=== PATIENT | female | born 1985 | race African-American/Black ===

== ENCOUNTER 2019-07-01 13:03 | Emergency (ER) | payer SELFPAY ==
--- NOTE | 2019-07-01 13:36 | ER ---
Nurse's Notes [facility] Name: Mercedes Cuello Age: 33 yrs Sex: Female : 1985 Arrival Date: 07/01/2019 Time: 13:05 Bed 13 Private MD: Diagnosis: Low back pain Presentation: 07/01 13:08 Presenting complaint: Patient states: lower back pain radiating to right leg. Pt states aa5 "I have back pain and I was doing some lifting over the weekend and aggravated it". 13:08 Transition of care: patient was not received from another setting of care. Onset of aa5 symptoms was June 2019. Risk Assessment: Do you want to hurt yourself or someone else? Patient reports no desire to harm self or others. Initial Sepsis Screen: Does the patient meet any 2 criteria? No. Patient's initial sepsis screen is negative. Does the patient have a suspected source of infection? No. Patient's initial sepsis screen is negative. Care prior to arrival: None. 13:08 Acuity: ALEXYS 4 aa5 13:08 Method Of Arrival: Ambulatory aa5 Triage Assessment: 13:10 General: Appears in no apparent distress. comfortable, obese, Behavior is cooperative, bp appropriate for age, anxious. Pain: Complains of pain in lumbar area. EENT: No deficits noted. Neuro: No deficits noted. Cardiovascular: No deficits noted. Respiratory: No deficits noted. GI: No signs and/or symptoms were reported involving the gastrointestinal system. : No signs and/or symptoms were reported regarding the genitourinary system. Derm: No deficits noted. Musculoskeletal: No deficits noted. 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 - Social history:: Smoking status: Patient uses tobacco products, denies chronic smoking, but will smoke occasionally. - Ebola Screening: : No symptoms or risks identified at this time. Screenin:11 Abuse screen: Denies threats or abuse. Denies injuries from another. Nutritional bp screening: No deficits noted. Tuberculosis screening: No symptoms or risk factors identified. Fall Risk None identified. Assessment: 13:10 General: SEE TRIAGE NOTE. bp 14:10 Reassessment: PT D/C HOME AMBULATORY, DX WITH LUMBAR PAIN. bp Vital Signs: 13:09 BP 152 / 90; Pulse 85; Resp 18 S; Temp 98.8(TE); Pulse Ox 100% on R/A; Weight 136.08 kg aa5 (R); Height 5 ft. 7 in. (170.18 cm) (R); Pain 8/10; 13:09 Body Mass Index 46.99 (136.08 kg, 170.18 cm) aa5 ED Course: 13:05 Patient arrived in ED. aa5 13:09 Arm band placed on. aa5 13:11 Triage completed. aa5 13:13 [facility]C [facility]. kb 13:13 Yinka Jacob MD is Attending Physician. kb 13:38 David Wu, RN is Primary Nurse. bp 14:11 Patient has correct armband on for positive identification. Bed in low position. Call bp light in reach. Side rails up X2. 14:11 No provider procedures requiring assistance completed. Patient did not have IV access bp during this emergency room visit. Administered Medications: 13:50 Drug: TORadol - Ketorolac 15 mg Route: IM; Site: right gluteus; bp 14:12 Follow up: Response: Pain is decreased bp Outcome: 13:36 Discharge ordered by MD. kb 14:11 Discharged to home ambulatory. bp 14:11 Condition: stable 14:11 Discharge instructions given to patient, Instructed on discharge instructions, follow up and referral plans. medication usage, Demonstrated understanding of instructions, follow-up care, medications, Prescriptions given X 2. 14:12 Patient left the ED. bp Signatures: Renetta Reyes FNP-C FNP-Ckb Calderon, Audri RN RN aa5 David Wu, EUSEBIA RN bp
--- NOTE | 2019-07-01 13:37 | EDPHYS ---
Physician Documentation [facility] Name: Mercedes Cuello Age: 33 yrs Sex: Female : 1985 Arrival Date: 07/01/2019 Time: 13:05 Bed 13 Private MD: ED Physician Yinka Jacob HPI: 07/01 13:32 This 33 yrs old Black Female presents to ER via Ambulatory with complaints of Back Pain.kb 13:32 The patient presents with pain that is chronic, with no known mechanism of injury. The kb symptoms are located in the low back. Onset: The symptoms/episode began/occurred 14 year(s) ago, and became worse 1 week(s) ago. The pain does not radiate. Associated signs and symptoms: The patient has no apparent associated signs or symptoms. The problem was sustained when bending over, from a chronic condition, the patient has known disc disease. Modifying factors: The patient symptoms are alleviated by nothing, the patient symptoms are aggravated by any movement. Severity of symptoms: At their worst the symptoms were moderate, in the emergency department the symptoms are unchanged. The patient has not experienced similar symptoms in the past. The patient has not recently seen a physician. 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 - Social history:: Smoking status: Patient uses tobacco products, denies chronic smoking, but will smoke occasionally. - Ebola Screening: : No symptoms or risks identified at this time. ROS: 13:30 Constitutional: Negative for fever, chills, and weight loss, Neck: Negative for injury, kb pain, and swelling, Cardiovascular: Negative for chest pain, palpitations, and edema, Respiratory: Negative for shortness of breath, cough, wheezing, and pleuritic chest pain, Abdomen/GI: Negative for abdominal pain, nausea, vomiting, diarrhea, and constipation, MS/Extremity: Negative for injury and deformity, Skin: Negative for injury, rash, and discoloration, Neuro: Negative for headache, weakness, numbness, tingling, and seizure. 13:30 Back: Positive for pain at rest, pain with movement, of the lumbar area. Exam: 13:31 Constitutional: This is a well developed, well nourished patient who is awake, alert, kb and in no acute distress. Head/Face: Normocephalic, atraumatic. Neck: Trachea midline, no thyromegaly or masses palpated, and no cervical lymphadenopathy. Supple, full range of motion without nuchal rigidity, or vertebral point tenderness. No Meningismus. Chest/axilla: Normal chest wall appearance and motion. Nontender with no deformity. No lesions are appreciated. Cardiovascular: Regular rate and rhythm with a normal S1 and S2. No gallops, murmurs, or rubs. Normal PMI, no JVD. No pulse deficits. Respiratory: Lungs have equal breath sounds bilaterally, clear to auscultation and percussion. No rales, rhonchi or wheezes noted. No increased work of breathing, no retractions or nasal flaring. Abdomen/GI: Soft, non-tender, with normal bowel sounds. No distension or tympany. No guarding or rebound. No evidence of tenderness throughout. Skin: Warm, dry with normal turgor. Normal color with no rashes, no lesions, and no evidence of cellulitis. MS/ Extremity: Pulses equal, no cyanosis. Neurovascular intact. Full, normal range of motion. Neuro: Awake and alert, GCS 15, oriented to person, place, time, and situation. Cranial nerves II-XII grossly intact. Motor strength 5/5 in all extremities. Sensory grossly intact. Cerebellar exam normal. Normal gait. 13:31 Back: pain, that is moderate, ROM is painful, normal spinal alignment noted. Vital Signs: 13:09 BP 152 / 90; Pulse 85; Resp 18 S; Temp 98.8(TE); Pulse Ox 100% on R/A; Weight 136.08 kg aa5 (R); Height 5 ft. 7 in. (170.18 cm) (R); Pain 8/10; 13:09 Body Mass Index 46.99 (136.08 kg, 170.18 cm) aa5 MDM: 13:13 Patient medically screened. kb 13:30 Data reviewed: vital signs, nurses notes. Data interpreted: Pulse oximetry: on room air kb is 100 %. Interpretation: normal. Counseling: I had a detailed discussion with the patient and/or guardian regarding: the historical points, exam findings, and any diagnostic results supporting the discharge/admit diagnosis, the need for outpatient follow up, a family practitioner, to return to the emergency department if symptoms worsen or persist or if there are any questions or concerns that arise at home. Administered Medications: 13:50 Drug: TORadol - Ketorolac 15 mg Route: IM; Site: right gluteus; bp 14:12 Follow up: Response: Pain is decreased bp Disposition: 15:39 Co-signature as Attending Physician, Yinka Jacob MD. rn Disposition: 07/01/19 13:36 Discharged to Home. Impression: Low back pain. - Condition is Stable. - Discharge Instructions: Back Injury Prevention, [id number], Back Pain, Adult, [id number], Back Exercises, [id number]. - Prescriptions for Cyclobenzaprine 10 mg Oral Tablet - take 1 tablet by ORAL route every 8 hours As needed; 21 tablet. Diclofenac Sodium 75 mg Oral Tablet, Delayed Release (E.C.) - take 1 tablet by ORAL route 2 times per day As needed; 30 tablet. - Medication Reconciliation Form, Thank You Letter, Antibiotic Education, Prescription Opioid Use form. - Follow up: Emergency Department; When: As needed; Reason: Worsening of condition. Follow up: Private Physician; When: 2 - 3 days; Reason: Recheck today's complaints, Continuance of care, Re-evaluation by your physician. Signatures: Renetta Reyes, FINANCIAL SERVICES REPRESENTATIVE-C FINANCIAL SERVICES REPRESENTATIVE-Ckb Yinka Jacob MD MD rn Calderon, Audri RN RN aa5 David Wu RN RN bp Corrections: (The following items were deleted from the chart) 14:12 13:36 07/01/2019 13:36 Discharged to Home. Impression: Low back pain. Condition is bp Stable. Forms are Medication Reconciliation Form, Thank You Letter, Antibiotic Education, Prescription Opioid Use. Follow up: Emergency Department; When: As needed; Reason: Worsening of condition. Follow up: Private Physician; When: 2 - 3 days; Reason: Recheck today's complaints, Continuance of care, Re-evaluation by your physician. kb
[2019-07-01] MEDS ORDERED: KETOROLAC 30 MG/ML INJ ONE (13:44)
[2019-07-01 14:31] VITALS: BP 152/90; TEMP 98.8; O2SAT 100
== END 2019-07-01 14:12 | disposition home or self-care (01) ==
LOC: ER 13:03
DX: M54.5 Low back pain (principal); Z72.0 Tobacco use; Z88.8 Allergy status to other drugs, medicaments and biological substances
CPT/HCPCS: 96372; 99283

== ENCOUNTER 2022-05-09 18:07 | Emergency (ER) | payer BC ==
--- OUTSIDE RECORDS SUMMARY | 2022-05-09 18:12 | XMS REPORT | Continuity of Care Document ---
:1985 Author Organization [facility] t Address [address] [place] [place] [address] Care Team Providers Name Role Phone Cindy BARRIOS, R Primary Care Physician AUGUSTIN Attending Clinician Unavailable Augustin RICE Attending Clinician Only, Db Test Attending Clinician Unavailable DANTE Attending Clinician Unavailable Monica LAWS, T Attending Clinician Unavailable Aurora BARRIOS Attending Clinician AURORA Attending Clinician Unavailable Naz STEPHENS Attending Clinician Unavailable Juliane RICE Attending Clinician Angelo BARRIOS J Attending Clinician Scot FELICIANO Attending Clinician Unavailable BING_Aimee Attending Clinician Unavailable JONNY SALEH Attending Clinician Unavailable Jonny Saleh DO Attending Clinician Michael SANDOVAL Attending Clinician Cindy BARRIOS, R Attending Clinician Yashira WHTIE Attending Clinician Unavailable Lab, Fam Pob I Attending Clinician Unavailable Asim BARRIOS Attending Clinician ASIM Attending Clinician Unavailable Visit, Nurse Attending Clinician Unavailable Vineet Curry Attending Clinician Vineet GUADARRAMA Attending Clinician Unavailable Doctor Unassigned, Name Attending Clinician Unavailable Pop Martinez Attending Clinician Unknown Attending Clinician Unavailable UNKNOWN Attending Clinician Unavailable BING_Aimee_J Admitting Clinician Unavailable Payers Payer Name Policy Type Policy Number Effective Date Expiration Date Gill badillo [employer] [id number] 2019 00:00:00 [place] [id number] 2019 00:00:00 Problems Condition Condition Condition Status Onset Resolution Last Treating Co mments Source Name Details Category Date Date Treatment Clinician Date Otalgia of Otalgia of Disease Active U nivers left ear left ear 5-06 ity of 00:00: [place] 00 [facility] Branch Non-recurr Non-recurr Disease Active U nivers ent acute ent acute 5 ity of serous serous 00:00: [place] otitis otitis 00 Medical media of media of Branch left ear left ear Otalgia of Otalgia of Disease Active U nivers left ear left ear 03-18 ity of 00:00: [place] 00 Medical Branch Trichomona Trichomona Disease Active 2018-11 U jhon l l 2-27 ity of vulvovagin vulvovagin [place] it[place] it[place] 00 [facility] BMI BMI Disease Active 2018-11 Univers 45.0-49.9, 45.0-49.9, 2-20 it y of adult adult 00:00: [place] [facility] Pain Pain Disease Active 2018-11 Univers pelvic pelvic 2-20 ity of 00:00: [place] [facility] Branch Well woman Well woman Disease Active 2015-11 U jhon exam exam 2-30 ity of 00:00: [place] [facility] Other Other Disease Active Overview: Univer s general general 5-12 Formattin ity o f counseling counseling 00:00: g of this [place] and advice and advice 00 note Me dical for for might be Branch contracept contracept different deysi deysi from the management management original. 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 Stopped effexor 10/2013 when she found out she was . Pelvic Pelvic Disease Resolve 2019-11-01 2019-11-01 Univers pain pain d 6-23 00:00:00 20:34:23 ity of 00:00: [place] 00 Medical Branch Multiparit Multiparit Disease Resolve 2013-112016-11-11 2016-11-11 Univers y y d 0-02 00:00:00 14:36:53 ity of 00:00: [place] 00 Medical Branch Displaceme Displaceme Disease Resolve 2016-11-11 2016-11-11 Univers nt of nt of d 1-14 00:00:00 14:36:47 ity of interverte interverte 00:00: [place] bral disc, bral disc, 00 Me dical site site Branch unspecifie unspecifie d, without d, without myelopathy myelopathy Rubella Rubella Disease Resolve 2015-03-24 2015-03-24 Univers nonimmune nonimmune d 7-10 00:00:00 14:12:29 ity of status, status, 00:00: [place] delivered, delivered, 00 Me dical current current Branch hospitaliz hospital ation ation Susceptibl Susceptibl Disease Resolve 2015-03-24 2015-03-24 Univers e to e to d 1-16 00:00:00 14:12:26 ity of varicella varicella 00:00: [place] (non-immun (non-immun 00 Me dical e), e), Branch currently currently Anemia of Anemia of Disease Resolve 2014-08-14 2014-08-15 Univers mother in mother in d 9-08 00:00:00 00:40:40 [place] of , , [place]: [place] 00 [place]ical condition condition Bran ch Disease Resolve 2014-08-14 2014-08-15 Univers delivery delivery d 8-14 00:00:00 00:40:43 it [place] delivered delivered [place] [facility] Obese Obese Disease Resolve 2014-08-14 2014-08-15 Univers d 1- 00:00:00 00:40:30 ity of 00:00: [place] 00 Medical Branch Intramural Intramural Disease Resolve 2014-08-14 2014-08-15 Univers leiomyoma leiomyoma d 11-26 00:00:00 00:40:48 [place]y of of uterus of uterus [place] Cleft lip Cleft lip Disease Resolve 2014-08-14 2014-08-15 Univers d 11-26 00:00:00 00:40:50 ity of 00:00: [place] 00 [facility] Branch Chronic Chronic Disease Resolve 2014-08-14 2014-08-15 Univers hypertensi hypertensi d 06-05 00:00:00 00:40:03 ity of on in on in 00:00: [place] 00 [facility] Tobacco Tobacco Disease Resolve 2014-07-21 2014-07-21 Univers use use d 7 00:00:00 18:29:28 ity of disorder disorder 00:00: [place] 00 [facility] Branch Labor and Labor and Disease Resolve 2014-07-03 2014-07-03 Univers delivery, delivery, d 8- 00:00:00 18:16:35 [place]y of indication indication 00:00: [place] for care for care 00 Medica l Branch Hypertensi Hypertensi Disease Resolve 2014-06-26 2014-06-26 Univers on on d 8-11 00:00:00 14:27:10 ity of complicati complicati 00:00: [place] ng ng 00 Medical Bran ch Need for Need for Disease Resolve 2014-06-26 2014-06-26 Univers prophylact prophylact d 11-26 00:00:00 14:27:13 ity of ic ic 00:00: [place] vaccinatio vaccinatio 00 Me dical n and n and Branch inoculatio inoculatio n against n against influenza influenza History of History of Disease Resolve 2012-2014-05-22 2015-08-14 Univers cervical cervical d 7-24 00:00:00 23:52:23 it y of dysplasia dysplasia [place] [facility] Allergies, Adverse Reactions, Alerts Allergy Allergy Status Severity Reaction(s) Onset Inactive Treating Comm ents Source Name Type Date Date Clinician Antihist Propensi Active Swelling 2011-11 Univ ers amines - ty to 0-05 ity of Alkylami adverse 00:00: [place] ne reaction 00 Medical s to Branch drug ANTIHIST Drug Active Swelling 2011-11 Univer s AMINES - Class 0-05 ity of ALKYLAMI 00:00: [place] 00 Medical Branch Social History Social Habit Start Date Stop Date Quantity Comments Source Exposure to Not sure [place] of SARS-CoV-2 [place] Medical (event) Branch History SDOH University o f Alcohol Frequency [place] M edical Branch History SDOH University o f Alcohol Std [place] Medical Drinks Branch History SDOH University o f Alcohol Binge [place] Medic al Branch Alcohol intake 2021-11-15 2021-11-15 0 /d University of 00:00:00 00:00:00 [facility] [place] [facility] Tobacco use and 2014-01-09 2014-01-09 Never used Universit y of exposure 00:00:00 00:00:00 [facility] [place] [facility] History of 2013-12-26 Cigarette Smoker Universi ty of tobacco use 00:00:00 [facility] [place] [facility] Alcohol Comment 2013-11-26 2013-11-26 socially only Univer sity of 00:00:00 00:00:00 prior to [facility] Branch Sex [birth year] Universit y of 00:00:00 00:00:00 [facility] [place] [facility] Smoking Status Start Date Stop Date Source Former smoker 2014-01-09 00:00:00 2014-01-09 00:00:00 Universi ty of [facility] [place] [facility] Medications Ordered Filled Start Stop Current Ordering Indication Dosage Frequency Signature Comments Components Source Medication Medication Date Date Medication? Clinician (SIG) Name Name benzonatate Yes [id number] 200mg Take 2 Univers 100 mg 1-03 capsules ity of capsule 00:00[place] mouth 2 [place] (two[place] Medical times Branch daily as needed for Cough. guaiFENesin 2022-0 Yes [id number] 400mg Take 1 Univers 400 mg 1-03 tablet by ity of tablet 00:00: mouth [place] 00 every 4 Medical (four) Branch hours as needed for Cough. amoxicillin Yes Otalgia of 1{tbl} Take 1 Univers -clavulanat 5-06 left ear tablet by ity of e 00:00: mouth 2 [place] (AUGMENTIN) 00 (two) Medical 875-125 mg times Branch per tablet daily. ibuprofen Yes Otalgia of 600mg Take 1 Univers 600 mg 5-06 left ear tablet by ity of tablet 00:00: mouth [place] 00 every 6 Medical (six) Branch hours as needed for Pain (scale 4-6) or Temp > 38.5 C. amoxicillin Yes [id number] 1{tbl} Take 1 Univers -clavulanat 5-06 35154 tablet by it y of e 00:00: mouth 2 [place] (AUGMENTIN) 00 (two) Medical 875-125 mg times Branch per tablet daily. ibuprofen Yes [id number] 600mg Take 1 Univers 600 mg 5-06 [id number] tablet by ity of tablet 00:00: mouth [place] 00 every 6 Medical (six) Branch hours as needed for Pain (scale 4-6) or Temp > 38.5 C. amoxicillin Yes [id number] 1{tbl} Take 1 Univers -clavulanat 5-06 [id number] tablet by it y of e 00:00: mouth 2 [place] (AUGMENTIN) 00 (two) Medical 875-125 mg times Branch per tablet daily. ibuprofen Yes [id number] 600mg Take 1 Univers 600 mg 5-06 [id number] tablet by ity of tablet 00:00: mouth [place] 00 every 6 Medical (six) Branch hours as needed for Pain (scale 4-6) or Temp > 38.5 C. amoxicillin 2020- Yes [id number] 1{tbl} Take 1 Univers -clavulanat 5-06 tablet by ity of e 00:00: mouth 2 [place] (AUGMENTIN) 00 (two) Medical 875-125 mg times Branch per tablet daily. ibuprofen 2020-0 Yes [id number] 600mg Take 1 Univers 600 mg 5-06 tablet by ity of tablet 00:00: mouth [place] 00 every 6 Medical (six) Branch hours as needed for Pain (scale 4-6) or Temp > 38.5 C. amoxicillin 2020-0 Yes [id number] 1{tbl} Take 1 Univers -clavulanat 5-06 tablet by ity of e 00:00: mouth 2 [place] (AUGMENTIN) 00 (two) Medical 875-125 mg times Branch per tablet daily. ibuprofen 2020-0 Yes [id number] 600mg Take 1 Univers 600 mg 5-06 tablet by ity of tablet 00:00: mouth [place] 00 every 6 Medical (six) Branch hours as needed for Pain (scale 4-6) or Temp > 38.5 C. amoxicillin 2020-0 Yes [id number] 1{tbl} Take 1 Univers -clavulanat 5-06 [id number] tablet by it y of e 00:00: mouth 2 [place] (AUGMENTIN) 00 (two) Medical 875-125 mg times Branch per tablet daily. ibuprofen 2020-0 Yes [id number] 600mg Take 1 Univers 600 mg 5-06 [id number] tablet by ity of tablet 00:00: mouth [place] every 6 Medical (six) Branch hours as needed for Pain (scale 4-6) or Temp > 38.5 C. amoxicillin 2020-0 Yes [id number] 1{tbl} Take 1 Univers -clavulanat 5-06 [id number] tablet by it y of e 00:00: mouth 2 [place] (AUGMENTIN) 00 (two) Medical 875-125 mg times Branch per tablet daily. ibuprofen 2020-0 Yes [id number] 600mg Take 1 Univers 600 mg 5-06 [id number] tablet by ity of tablet 00:00: mouth [place] every 6 Medical (six) Branch hours as needed for Pain (scale 4-6) or Temp > 38.5 C. acyclovir 2020-0 Yes Univers 400 mg 1-19 ity of tablet 00:00: Medical Branch acyclovir 2020-0 Yes Univers 400 mg 1-19 ity of tablet 00:00: Medical Branch acyclovir 2020-0 Yes Univers 400 mg 1-19 ity of tablet 00:00: Medical Branch acyclovir 2020-0 Yes Univers 400 mg 1-19 ity of tablet 00:00: Medical Branch acyclovir 2020-0 Yes Univers 400 mg 1-19 ity of tablet 00:00: [place] 00 Medical Branch acyclovir 2020-0 Yes Univers 400 mg 1-19 ity of tablet 00:00: [place] 00 Medical Branch acyclovir 2020-0 Yes Univers 400 mg 1-19 ity of tablet 00:00: [place] 00 Medical Branch acyclovir 2020-0 Yes Univers 400 mg 1-19 ity of tablet 00:00: [place] 00 Medical Branch acyclovir 2020-0 Yes Univers 400 mg 1-19 ity of tablet 00:00: [place] 00 [facility] Branch norgestimat 2020-0 Yes [id number] 1{tbl} Take 1 Univers e-ethinyl 9-01 tablet by ity o f estradioL 00:00: mouth [place] (ORTHO 00 daily. [place] [address],) 0.18/0.215/ 0.25 mg-35 mcg (28) tablet norgestimat 2020-0 Yes [id number] 1{tbl} Take 1 Univers e-ethinyl 9-01 tablet by ity o f estradioL 00:00: mouth [place] (ORTHO 00 daily. [place] [address],) 0.18/0.215/ 0.25 mg-35 mcg (28) tablet norgestimat 2020-0 Yes [id number] 1{tbl} Take 1 Univers e-ethinyl 9-01 tablet by ity o f estradioL 00:00: mouth [place] (ORTHO 00 daily. [place] [address],) 0.18/0.215/ 0.25 mg-35 mcg (28) tablet norgestimat 2020-0 Yes [id number] 1{tbl} Take 1 Univers e-ethinyl 9-01 tablet by ity o f estradioL 00:00: mouth [place] [facility] [address] 0.18/0.215/ 0.25 mg-35 mcg (28) tablet norgestimat 2020-0 Yes [id number] 1{tbl} Take 1 Univers e-ethinyl 9-01 tablet by ity o f estradioL 00:00: mouth [place] (ORTHO 00 daily. [place] [address],) 0.18/0.215/ 0.25 mg-35 mcg (28) tablet norgestimat 2020-0 2021- No [place] 1{tbl} Take 1 Univers e-ethinyl 9- 05-06 h bleeding tablet by ity of estradioL 00:00: 00:00 on mouth [place] (ORTHO 00 :00 Depo-Intermediate Card Tender daily. [facility]-CYCLEN, a Branch 28,) 0.18/0.215/ 0.25 mg-35 mcg (28) tablet norgestimat 2020- No [id number] 1{tbl} Take 1 Univers e-ethinyl 9- 05-06 tablet by ity of estradioL 00:00: 00:00 mouth [place] (ORTHO 00 :00 daily. [facility] TRI-CYCLEN, Branch 28,) 0.18/0.215/ 0.25 mg-35 mcg (28) tablet acyclovir No [id number] 400mg Take 1 Univers 400 mg 3-26 04-01 tablet by ity of tablet 00:00: 04:59 mouth 3 [place] 00 :00 (three) Medical times Branch daily for 5 days. benzonatate 2020-0 Yes [id number] 200mg Take 1 Univers 200 mg 3-11 capsule by ity of capsule 00:00: mouth 3 [place] 00 (three) Medical times Branch daily as needed for Cough. codeine-gua 2020-0 Yes [id number] 5mL Take 5 mL Univers ifenesin 3-11 by mouth ity of 10-100 mg/5 00:00: every 6 [place] as mL solution 00 (six) Medical hours as Branch needed for Cough. benzonatate 2020-0 Yes [id number] 200mg Take 1 Univers 200 mg 3-11 capsule by ity of capsule 00:00: mouth 3 [place] 00 (three) Medical times Branch daily as needed for Cough. codeine-gua 2020-0 Yes [id number] 5mL Take 5 mL Univers ifenesin 3-11 by mouth ity of 10-100 mg/5 00:00: every 6 [place] as mL solution 00 (six) Medical hours as Branch needed for Cough. benzonatate 2020-0 Yes [id number] 200mg Take 1 Univers 200 mg 3-11 capsule by ity of capsule 00:00: mouth 3 [place] 00 (three) Medical times Branch daily as needed for Cough. codeine-gua 2020-0 Yes [id number] 5mL Take 5 mL Univers ifenesin 3-11 by mouth ity of 10-100 mg/5 00:00: every 6 [place] mL solution 00 (six) Medical hours as Branch needed for Cough. benzonatate 2020-0 Yes [id number] 200mg Take 1 Univers 200 mg 3-11 capsule by ity of capsule 00:00: mouth 3 [place] 00 (three) Medical times Branch daily as needed for Cough. codeine-gua 2020-0 Yes [id number] 5mL Take 5 mL Univers ifenesin 3-11 by mouth ity of 10-100 mg/5 00:00: every 6 [place] mL solution 00 (six) Medical hours as Branch needed for Cough. benzonatate 2020-0 Yes [id number] 200mg Take 1 Univers 200 mg 3-11 capsule by ity of capsule 00:00: mouth 3 (three) Medical times Branch daily as needed for Cough. codeine-gua 2020-0 Yes [id number] 5mL Take 5 mL Univers ifenesin 3-11 by mouth ity of 10-100 mg/5 00:00: every 6 [place] mL solution 00 (six) Medical hours as Branch needed for Cough. benzonatate 2020-0 Yes [id number] 200mg Take 1 Univers 200 mg 3-11 capsule by ity of capsule 00:00: mouth (three) Medical times Branch daily as needed for Cough. codeine-gua 2020-0 Yes [id number] 5mL Take 5 mL Univers ifenesin 3-11 by mouth ity of 10-100 mg/5 00:00: every 6 [place] mL solution 00 (six) Medical hours as Branch needed for Cough. benzonatate 2020-0 Yes [id number] 200mg Take 1 Univers 200 mg 3-11 capsule by ity of capsule 00:00: mouth 3 (three) Medical times Branch daily as needed for Cough. codeine-gua 2020-0 Yes [id number] 5mL Take 5 mL Univers ifenesin 3-11 by mouth ity of 10-100 mg/5 00:00: every 6 [place] mL solution 00 (six) Medical hours as Branch needed for Cough. benzonatate 2020-0 Yes [id number] 200mg Take 1 Univers 200 mg 3-11 capsule by ity of capsule 00:00: mouth 3 00 (three) Medical times Branch daily as needed for Cough. codeine-gua 2020-0 Yes [id number] 5mL Take 5 mL Univers ifenesin 3-11 by mouth ity of 10-100 mg/5 00:00: every 6 [place] mL solution 00 (six) Medical hours as Branch needed for Cough. benzonatate 2020-0 Yes [id number] 200mg Take 1 Univers 200 mg 3-11 capsule by ity of capsule 00:00: mouth 3 [place] 00 (three) Medical times Branch daily as needed for Cough. codeine-gua 2020-0 Yes [id number] 5mL Take 5 mL Univers ifenesin 3-11 by mouth ity of 10-100 mg/5 00:00: every 6 [place] mL solution 00 (six) Medical hours as Branch needed for Cough. benzonatate 2020-0 Yes [id number] 200mg Take 1 Univers 200 mg 3-11 capsule by ity of capsule 00:00: mouth 3 [place] 00 (three) Medical times Branch daily as needed for Cough. codeine-gua 2020-0 Yes [id number] 5mL Take 5 mL Univers ifenesin 3-11 by mouth ity of 10-100 mg/5 00:00: every 6 [place] mL solution 00 (six) Medical hours as Branch needed for Cough. benzonatate 2019-0 2020- No Cough 200mg Take 1 U nivers 200 mg 3-11 05-06 capsule by ity of capsule 00:00: 00:00 mouth 3 [place] 00 :00 (three) Medical times Branch daily as needed for Cough. codeine-gua 2020-0 2020- No Cough 5mL Take 5 mL Univers ifenesin 3-11 05-06 by mouth ity of 10-100 mg/5 00:00: 00:00 every 6 [place] mL solution 00 :00 (six) Medical hours as Branch needed for Cough. benzonatate 2020-0 2020- No [id number] 200mg Take 1 Univers 200 mg 3-11 05-06 capsule by ity of capsule 00:00: 00:00 mouth 3 [place] 00 :00 (three) Medical times Branch daily as needed for Cough. codeine-gua 2020-0 2020- No [id number] 5mL Take 5 mL Univers ifenesin 3-11 05-06 by mouth ity of 10-100 mg/5 00:00: 00:00 every 6 [place] mL solution 00 :00 (six) Medical hours as Branch needed for Cough. medroxyPROG 2020-0 2020- No 150mg Univ ers ESTERone 11-19 12-07 ity of (DEPO-PROVE 00:00: 23:59 [place] RA) 00 :00 Medical injection Branch 150 mg medroxyPROG 2020-0 2020- No 150mg Univ ers ESTERone 11-19 1207 ity of (DEPO-PROVE 00:00: 23:59 [place] RA) 00 :00 Medical injection Branch 150 mg medroxyPROG 2020-0 2020- No 150mg 150 mg, U nivers ESTERone 11-19 Intramuscu ity of (DEPO-PROVE 00:00: 23:59 lar, [place] RA) 00 :00 [id number], Medical injection 4 doses, Branch 150 mg First dose on Mon11/18/19 at 1800, Last dose on Mon07/27/20 at 1800, Routine medroxyPROG 2020-0 2020- No 150mg Univ ers ESTERone 11-19- ity of (DEPO-PROVE 00:00: 23:59 [place] RA) 00 :00 Medical injection Branch 150 mg medroxyPROG 2020-0 2020- No 150mg 150 mg, U nivers ESTERone 11-19 Intramuscu ity of (DEPO-PROVE 00:00: 23:59 [place], [place] RA) 00 :00 [id number], Medical injection 4 doses, Branch 150 mg First dose on Mon11/18/19 at 1800, Last dose on Mon07/27/20 at 1800, Routine medroxyPROG 2020-0 2020- No 150mg Univ ers ESTERone 11-19 12- ity of (DEPO-PROVE 00:00: 23:59 [place] RA) 00 :00 Medical injection Branch 150 mg medroxyPROG 2020-0 2020- No 150mg Univ ers ESTERone 11-19 12-07 ity of (DEPO-PROVE 00:00: 23:59 [place] RA) 00 :00 Medical injection Branch 150 mg medroxyPROG 2020-0 2020- No 150mg Univ ers ESTERone 11-19- ity of (DEPO-PROVE 00:00: 23:59 [place] RA) 00 :00 Medical injection Branch 150 mg medroxyPROG 2020-0 2020- No 150mg Univ ers ESTERone 11-19 10-19 ity of (DEPO-PROVE 00:00: 23:59 [place] RA) 00 :00 Medical injection Branch 150 mg Immunizations Ordered Immunization Filled Immunization Date Status Commen ts Source Name Name SARS-COV-2 COVID-19 2021-02-24 Completed Unive rsity of PFIZER VACCINE 00:00:00 [facility] SARS-COV-2 COVID-19 2021-02-24 Completed Unive rsity of PFIZER VACCINE 00:00:00 [facility] SARS-COV-2 COVID-19 2021-02-24 Completed Unive rsity of PFIZER VACCINE 00:00:00 [facility] SARS-COV-2 COVID-19 2021-02-24 Completed Unive rsity of PFIZER VACCINE 00:00:00 [facility] SARS-COV-2 COVID-19 2021-02-24 Completed Unive rsity of PFIZER VACCINE 00:00:00 [facility] SARS-COV-2 COVID-19 2021-02-24 Completed Unive rsity of PFIZER VACCINE 00:00:00 [facility] SARS-COV-2 COVID-19 2021-02-24 Completed Unive rsity of PFIZER VACCINE 00:00:00 [facility] SARS-COV-2 COVID-19 2021-02-03 Completed Unive rsity of PFIZER VACCINE 00:00:00 [facility] SARS-COV-2 COVID-19 2021-02-03 Completed Unive rsity of PFIZER VACCINE 00:00:00 [facility] SARS-COV-2 COVID-19 2021-02-03 Completed Unive rsity of PFIZER VACCINE 00:00:00 [facility] SARS-COV-2 COVID-19 2021-02-03 Completed Unive rsity of PFIZER VACCINE 00:00:00 [facility] SARS-COV-2 COVID-19 2021-02-03 Completed Unive rsity of PFIZER VACCINE 00:00:00 [facility] SARS-COV-2 COVID-19 2021-02-03 Completed Unive rsity of PFIZER VACCINE 00:00:00 [facility] SARS-COV-2 COVID-19 2021-02-03 Completed Unive rsity of PFIZER VACCINE 00:00:00 [facility] Varicella 2014-08-11 Completed University of (varivax)(chicken 00:00:00 [place] M edical pox) Branch Varicella 2014-08-11 Completed University of (varivax)(chicken 00:00:00 [place] M edical pox) Branch Varicella 2014-08-11 Completed University of (varivax)(chicken 00:00:00 [place] M edical pox) Branch Varicella 2014-08-11 Completed University of (varivax)(chicken 00:00:00 [place] M edical pox) Branch Varicella 2014-08-11 Completed University of (varivax)(chicken 00:00:00 [place] M edical pox) Branch Varicella 2014-08-11 Completed University of (varivax)(chicken 00:00:00 [place] M edical pox) Branch Varicella 2014-08-11 Completed University of (varivax)(chicken 00:00:00 [place] M edical pox) Branch Varicella 2014-08-11 Completed University of (varivax)(chicken 00:00:00 [place] M edical pox) Branch Varicella 2014-08-11 Completed University of (varivax)(chicken 00:00:00 [place] M edical pox) Branch Varicella 2014-08-11 Completed University of (varivax)(chicken 00:00:00 [place] M edical pox) Branch Varicella 2014-08-11 Completed University of (varivax)(chicken 00:00:00 [place] M edical pox) Branch Varicella 2014-08-11 Completed University of (varivax)(chicken 00:00:00 [place] M edical pox) Branch Varicella 2014-08-11 Completed University of (varivax)(chicken 00:00:00 [place] M edical pox) Branch Varicella 2014-08-11 Completed University of (varivax)(chicken 00:00:00 [place] M edical pox) Branch Varicella 2014-08-11 Completed University of (varivax)(chicken 00:00:00 [place] M edical pox) Branch Varicella 2014-08-11 Completed University of (varivax)(chicken 00:00:00 [place] M edical pox) Branch Varicella 2014-08-11 Completed University of (varivax)(chicken 00:00:00 [place] M edical pox) Branch Varicella 2014-06-28 Completed University of (varivax)(chicken 00:00:00 [place] M edical pox) Branch MMR 2014-06-28 Completed University of 00:00:00 [facility] [place] [facility] Varicella 2014-06-28 Completed University of (varivax)(chicken 00:00:00 [place] M edical pox) Branch MMR 2014-06-28 Completed University of 00:00:00 [facility] [place] [facility] Varicella 2014-06-28 Completed University of (varivax)(chicken 00:00:00 [place] M edical pox) Branch [facility] 2014-06-28 Completed University of 00:00:00 [facility] [place] [facility] Varicella 2014-06-28 Completed University of (varivax)(chicken 00:00:00 [place] M edical pox) Branch MMR 2014-06-28 Completed University of 00:00:00 [facility] [place] [facility] Varicella 2014-06-28 Completed University of (varivax)(chicken 00:00:00 [place] M edical pox) Branch [facility] 2014-06-28 Completed University of 00:00:00 [facility] Varicella 2014-06-28 Completed University of (varivax)(chicken 00:00:00 [place] [facility]ox[facility] 2014-06-28 Completed University of 00:00:00 [facility] Varicella 2014-06-28 Completed University of (varivax)(chicken 00:00:00 [place] [facility] 2014-06-28 Completed University of 00:00:00 [facility] Varicella 2014-06-28 Completed University of (varivax)(chicken 00:00:00 [place] [facility] pox[facility] 2014-06-28 Completed University of 00:00:00 [facility] Varicella 2014-06-28 Completed University of (varivax)(chicken 00:00:00 [place] [facility] pox[facility] 2014-06-28 Completed University of 00:00:00 [facility] Varicella 2014-06-28 Completed University of (varivax)(chicken 00:00:00 [place] [facility] pox[facility] 2014-06-28 Completed University of 00:00:00 [facility] Varicella 2014-06-28 Completed University of (varivax)(chicken 00:00:00 [place] [facility] pox[facility] 2014-06-28 Completed University of 00:00:00 [facility] Varicella 2014-06-28 Completed University of (varivax)(chicken 00:00:00 [place] [facility] pox[facility] 2014-06-28 Completed University of 00:00:00 [facility] Varicella 2014-06-28 Completed University of (varivax)(chicken 00:00:00 [facility] edical pox) Branch MMR 2014-06-28 Completed University of 00:00:00 [facility] Varicella 2014-06-28 Completed University of (varivax)(chicken 00:00:00 [place] [facility] pox[place] [facility] MMR 2014-06-28 Completed University of 00:00:00 [facility] Varicella 2014-06-28 Completed University of (varivax)(chicken 00:00:00 [facility] edical pox) Branch MMR 2014-06-28 Completed University of 00:00:00 [facility] Varicella 2014-06-28 Completed University of (varivax)(chicken 00:00:00 [facility] edical pox) Branch MMR 2014-06-28 Completed University of 00:00:00 [facility] Varicella 2014-06-28 Completed University of (varivax)(chicken 00:00:00 [facility] edical pox) Branch [facility] 2014-06-28 Completed University of 00:00:00 [facility] Tdap 2014-04-24 Completed University of 00:00:00 [facility] Tdap 2014-04-24 Completed University of 00:00:00 [facility] TDAP 2014-04-24 Completed University of 00:00:00 [facility] TDAP 2014-04-24 Completed University of 00:00:00 [facility] TDAP 2014-04-24 Completed University of 00:00:00 [facility] TDAP 2014-04-24 Completed University of 00:00:00 [facility] TDAP 2014-04-24 Completed University of 00:00:00 [facility] TDAP 2014-04-24 Completed University of 00:00:00 [facility] TDAP 2014-04-24 Completed University of 00:00:00 [facility] TDAP 2014-04-24 Completed University of 00:00:00 [facility] TDAP 2014-04-24 Completed University of 00:00:00 [facility] TDAP 2014-04-24 Completed University of 00:00:00 [facility] TDAP 2014-04-24 Completed University of 00:00:00 [facility] TDAP 2014-04-24 Completed University of 00:00:00 [facility] TDAP 2014-04-24 Completed University of 00:00:00 [facility] Tdap 2014-04-24 Completed University of 00:00:00 [facility] TDAP 2014-04-24 Completed University of 00:00:00 [facility] Influenza Virus 2013-11-26 Completed Universit y of Vaccine (3+ yrs) 00:00:00 [facility] Influenza Virus 2013-11-26 Completed Universit y of Vaccine (3+ yrs) 00:00:00 [facility] Influenza Virus 2013-11-26 Completed Universit y of Vaccine (3+ yrs) 00:00:00 [facility] Influenza Virus 2013-11-26 Completed Universit y of Vaccine (3+ yrs) 00:00:00 [facility] Influenza Virus 2013-11-26 Completed Universit y of Vaccine (3+ yrs) 00:00:00 [facility] Influenza Virus 2013-11-26 Completed Universit y of Vaccine (3+ yrs) 00:00:00 [facility] Influenza Virus 2013-11-26 Completed Universit y of Vaccine (3+ yrs) 00:00:00 [facility] Influenza Virus 2013-11-26 Completed Universit y of Vaccine (3+ yrs) 00:00:00 [facility] Influenza Virus 2013-11-26 Completed Universit y of Vaccine (3+ yrs) 00:00:00 [facility] Influenza Virus 2013-11-26 Completed Universit y of Vaccine (3+ yrs) 00:00:00 [facility] Influenza Virus 2013-11-26 Completed Universit y of Vaccine (3+ yrs) 00:00:00 [facility] Influenza Virus 2013-11-26 Completed Universit y of Vaccine (3+ yrs) 00:00:00 [facility] Influenza Virus 2013-11-26 Completed Universit y of Vaccine (3+ yrs) 00:00:00 [facility] Influenza Virus 2013-11-26 Completed Universit y of Vaccine (3+ yrs) 00:00:00 [facility] Influenza Virus 2013-11-26 Completed Universit y of Vaccine (3+ yrs) 00:00:00 [facility] Influenza Virus 2013-11-26 Completed Universit y of Vaccine (3+ yrs) 00:00:00 [facility] Influenza Virus 2013-11-26 Completed Universit y of Vaccine (3+ yrs) 00:00:00 [facility] dical [place] Meningococcal 2011-11-23 Completed University of Polysaccharide 00:00:00 [facility] (groups A, C, Y and Branc h W-135) conjugate vaccine (MCV4P) Meningococcal 2011-11-23 Completed University of Polysaccharide 00:00:00 [facility] (groups A, C, Y and Branc h W-135) conjugate vaccine (MCV4P) TDAP 2002-11-13 Completed University of 00:00:00 [facility] TDAP 2002-11-13 Completed University of 00:00:00 [facility] Vital Signs Vital Name Observation Time Observation Value Comments Source Systolic blood 2021-11-15 172 mm[Hg] University of pressure 18:58:00 [facility] Diastolic blood 2021-11-15 80 mm[Hg] University o f pressure 18:58:00 [facility] Heart rate 2021-11-15 91 /min University of 18:57:00 [facility] Body temperature 2021-11-15 36.33 Sherlyn University of 18:57:00 [facility] Respiratory rate 2021-11-15 16 /min University of 18:57:00 [facility] Body height 2021-11-15 171.5 cm University of 18:57:00 [facility] Body weight 2021-11-15 145.151 kg University of 18:57:00 [facility] BMI 2021-11-15 49.38 kg/m2 University of 18:57:00 [facility] Oxygen saturation 2021-11-15 99 /min [facility] in Arterial blood 18:57:00 [facility] by Pulse oximetry Branch Systolic blood 2021-07-15 144 mm[Hg] University of pressure 16:13:00 [facility] Diastolic blood 2021-07-15 87 mm[Hg] University o f pressure 16:13:00 [facility] Heart rate 2021-07-15 93 /min University of 16:12:00 [facility] Respiratory rate 2021-07-15 20 /min University of 16:12:00 [facility] Body height 2021-07-15 171.5 cm University of 16:12:00 [facility] Body weight 2021-07-15 153.968 kg University of 16:12:00 [facility] BMI 2021-07-15 52.38 kg/m2 University of 16:12:00 [facility] Oxygen saturation 2021-07-15 99 /min University of in Arterial blood 16:12:00 [facility] maci by Pulse oximetry Branch Systolic blood 2021-03-19 148 mm[Hg] University of pressure 00:31:00 [facility] Diastolic blood 2021-03-19 87 mm[Hg] University o f pressure 00:31:00 [facility] Systolic blood 2021-03-19 148 mm[Hg] University of pressure 00:31:00 [facility] Diastolic blood 2021-03-19 87 mm[Hg] University o f pressure 00:31:00 [facility] Heart rate 2021-03-19 84 /min University of 00:29:00 [facility] Body temperature 2021-03-19 37.33 Sherlyn University of 00:29:00 [facility] Respiratory rate 2021-03-19 18 /min University of 00:29:00 [facility] Body height 2021-03-19 170.2 cm University of 00:29:00 [facility] Body weight 2021-03-19 136.079 kg University of 00:29:00 [facility] BMI 2021-03-19 46.99 kg/m2 University of 00:29:00 [facility] Oxygen saturation 2021-03-19 98 /min University of in Arterial blood 00:29:00 [facility] by Pulse oximetry Branch Heart rate 2021-03-19 84 /min University of 00:29:00 [facility] Body temperature 2021-03-19 37.33 Sherlyn University of 00:29:00 [facility] Respiratory rate 2021-03-19 18 /min University of 00:29:00 [facility] Body height 2021-03-19 170.2 cm University of 00:29:00 [facility] Body weight 2021-03-19 136.079 kg University of 00:29:00 [facility] BMI 2021-03-19 46.99 kg/m2 University of 00:29:00 [facility] Oxygen saturation 2021-03-19 98 /min University of in Arterial blood 00:29:00 [facility] maci by Pulse oximetry Branch Systolic blood 2021-03-19 148 mm[Hg] University of pressure 00:31:00 [facility] Diastolic blood 2021-03-19 87 mm[Hg] University o f pressure 00:31:00 [facility] Systolic blood 2021-03-19 148 mm[Hg] University of pressure 00:31:00 [facility] Diastolic blood 2021-03-19 87 mm[Hg] University o f pressure 00:31:00 [facility] Heart rate 2021-03-19 84 /min University of 00:29:00 [facility] Body temperature 2021-03-19 37.33 Sherlyn University of 00:29:00 [facility] Respiratory rate 2021-03-19 18 /min University of 00:29:00 [facility] Body height 2021-03-19 170.2 cm University of 00:29:00 [facility] Body weight 2021-03-19 136.079 kg University of 00:29:00 [facility] BMI 2021-03-19 46.99 kg/m2 University of 00:29:00 [facility] Oxygen saturation 2021-03-19 98 /min University of in Arterial blood 00:29:00 [facility] maci by Pulse oximetry Branch Heart rate 2021-03-19 84 /min University of 00:29:00 [facility] Body temperature 2021-03-19 37.33 Sherlyn University of 00:29:00 [facility] Respiratory rate 2021-03-19 18 /min University of 00:29:00 [facility] Body height 2021-03-19 170.2 cm University of 00:29:00 [facility] Body weight 2021-03-19 136.079 kg University of 00:29:00 [facility] BMI 2021-03-19 46.99 kg/m2 University of 00:29:00 [facility] Oxygen saturation 2021-03-19 98 /min University of in Arterial blood 00:29:00 [place] [facility] by Pulse oximetry Branch Systolic blood 2020-12-18 174 mm[Hg] pt kept moving University of pressure 00:06:00 due to son [facility] [place] Diastolic blood 2020-12-18 83 mm[Hg] pt kept moving University of pressure 00:06:00 due to son [facility] Heart rate 2020-12-18 86 /min University of 00:06:00 [facility] Body temperature 2020-12-18 37.17 Sherlyn University of 00:06:00 [facility] Respiratory rate 2020-12-18 18 /min University of 00:06:00 [facility] Body height 2020-12-18 170.2 cm University of 00:06:00 [facility] Body weight 2020-12-18 147.782 kg University of 00:06:00 [facility] BMI 2020-12-18 51.03 kg/m2 University of 00:06:00 [facility] Oxygen saturation 2020-12-18 96 /min [facility] in Arterial blood 00:06:00 [facility] by Pulse oximetry [place] Systolic blood 2020-07-14 139 mm[Hg] University of pressure 20:16:00 [facility] Diastolic blood 2020-07-14 85 mm[Hg] University o f pressure 20:16:00 [facility] Heart rate 2020-07-14 84 /min University of 20:16:00 [facility] Body temperature 2020-07-14 37.33 Sherlyn University of 20:16:00 [facility] Respiratory rate 2020-07-14 16 /min University of 20:16:00 [facility] Body height 2020-07-14 170.2 cm University of 20:16:00 [facility] Body weight 2020-07-14 147.589 kg University of 20:16:00 [facility] BMI 2020-07-14 50.96 kg/m2 University of 20:16:00 [facility] Systolic blood 2020-05-18 130 mm[Hg] University of pressure 14:28:00 [facility] Diastolic blood 2020-05-18 70 mm[Hg] University o f pressure 14:28:00 [facility] Heart rate 2020-05-18 91 /min University of 14:22:00 [facility] Body temperature 2020-05-18 36.78 Sherlyn University of 14:22:00 [facility] Respiratory rate 2020-05-18 16 /min University of 14:22:00 [facility] Body height 2020-05-18 170.2 cm University of 14:22:00 [facility] Body weight 2020-05-18 148.411 kg University of 14:22:00 [facility] BMI 2020-05-18 51.24 kg/m2 University of 14:22:00 [facility] Systolic blood 2020-02-12 135 mm[Hg] per pt report University o f pressure 18:58:00 taken this AM [facility] Diastolic blood 2020-02-12 75 mm[Hg] per pt report University of pressure 18:58:00 taken this AM [facility] Diastolic blood 2020-01-23 77 mm[Hg] [place] o f pressure 01:21:00 [facility] Systolic blood 2020-01-23 182 mm[Hg] [place] of pressure 01:21:00 [facility] Heart rate 2020-01-23 65 /min [facility] :20:00 [facility] Body temperature 2020-01-23 37.17 Sherlyn [facility] :20:00 [facility] Respiratory rate 2020-01-23 18 /min [facility] :20:00 [facility] Body height 2020-01-23 170.2 cm [facility] :20:00 [facility] Body weight 2020-01-23 140.706 kg [facility] :20: [facility] BMI 2020-01-23 48.58 kg/m2 [facility] :20: [facility] Oxygen saturation 2020-01-23 98 /min [facility] in Arterial blood 01:20:00 [facility] by Pulse oximetry Branch Procedures Procedure Date / Time Performed Performing Clinician Sourc e POCT GRP A STREP 2020-12-18 00:24:00 Tiny Rodriguez [facility] (MOLECULAR) [facility] POCT GRP A STREP 2020-01-23 01:52:00 Erica Sampson [facility] ([facility]) [facility] POCT FLU A AND B 2020-01-23 01:40:00 Erica Sampson [facility] ([facility]) [facility] Plan of Care Planned Activity Planned Date Details Comments Source Future Scheduled 2024-04-24 DTaP,Tdap,and Td Univers [facility] Test 00:00:00 Vaccines (2 - Td) Medical Br anch [code = DTaP,Tdap,and Td Vaccines (2 - Td)] Future Scheduled 2022-11-01 Screening for [facility] Test 00:00:00 malignant neoplasm Medical B ranch of cervix (procedure) [code = 169019421] Future Scheduled 2021-07-14 INFLUENZA VACCINE [facility] Test 00:00:00 (Season Ended) [code Medical Branch = INFLUENZA VACCINE (Season Ended)] Future Scheduled 2004 Hepatitis C [facility] Test 00:00:00 screening Medical Branch (procedure) [code = 167066957] Future Scheduled 1998 Depression screening Uni [facility] Test 00:00:00 (procedure) [code = Medical Branch [id number]] Encounters Start End Encounter Admission Attending Care Care Encounter Source Date/Time Date/Time Type Type Clinicians Facility Department ID 2021-11-15 2021-11-15 Outpatient Yashira RUFFIN [facility] [id number] Univers 12:40:00 13:28:47 [facility] 2021-11-15 2021-11-15 Urgent Augustin [facility] [id number] Univers 12:40:00 13:28:47 Care [facility] [id number] it y of [place] [id number] Nasim as EMANUEL?BLEA [phone] [address] MEDICAL OFFICE [facility] 2021-11-15 2021-11-15 Outpatient R [facility] [id number] Univers 12:40:00 12:40:[id number] 2021-11-08 2021-11-08 Outpatient R AUGUSTIN [facility] [id number] Univers 15:30:00 15:52:28 [facility] 2021-11-08 2021-11-08 Laboratory Only, Ang Db Test [facility] 1.2.8 [id number] Univers 15:30:00 15:45:00 Only Rhea Ruffin [id number] ity of [place] [id number] Nasim as EMANUEL?BLEA [phone] [address] MEDICAL OFFICE [facility] 2021-11-08 2021-11-08 Outpatient R [facility] [id number] Univers 15:30:00 15:30:00 [id number] [facility] 2021-09-14 2021-09-14 Outpatient STEVE PORTILLO [facility] [id number] Univers 15:30:00 15:30:00 [id number] [facility] 2021-09-14 2021-09-14 Outpatient MARCY PORTILLON [facility] [id number] Univers 15:30:00 [facility] 2021-07-16 2021-07-16 Letter TINY Anderson [id number] Univers 00:00:00 00:00:00 (Out) Elke WEBB [id number] it y of [facility] [id number] Nasim as [phone] [address] 2021-07-15 2021-07-15 Urgent Aurora [facility] [id number] Univers 10:50:51 11:10:51 Care [facility] [id number] it y of [place] [id number] Nasim as Emanuel?Blea [phone] Il dical kney [address] [place] [facility] 2021-07-15 2021-07-15 Outpatient R [facility] [id number] Univers 11:00:00 11:00:00 [id number] ity [facility] 2021-07-15 2021-07-15 [facility] [id number] Univers 11:00:00 11:00:00 [facility] 2021-03-18 2021-03-18 Outpatient R [facility] [id number] Univers 19:00:00 19:00:00 [id number] [facility] 2021-03-18 2021-03-18 Outpatient R ANGELO [facility] [id number] Univers 19:00:00 19:00:00 REGGIE rincon o f [facility] 2021-03-18 2021-03-18 Urgent Meliton Cardozo [facility] [id number] Univers 18:19:37 18:39:37 [facility] [id number] ity of [place] [id number] Nasim as Professio [phone] Il angelo [facility] [address] [place] [facility] [address] [facility] 2021-02-24 2021-02-24 Outpatient [facility] [id number] Univers 14:30:00 14:30:00 [id number] ity [facility] 2021-02-24 2021-02-24 Outpatient R BRADEN [facility] [id number] Univers 14:30:00 14:30:00 MARCELA ity [facility] 2021-02-19 2021-02-19 Outpatient GC_SWHAOMC_ PRIV PRIV [id number] [facility] 11:48:00 11:48:00 Nacho [id number] Medic al 2021-02-03 2021-02-03 Outpatient THERESE [facility] [id number] Univers 14:30:00 14:30:00 BRAD ity [facility] 2021-02-02 2021-02-02 Patient Therese [facility] [id number] Univers 00:00:00 00:00:00 Outreach Brad [facility] [id number] i ty of [facility] [id number] [place] [phone] [place] dical [address] [place] [address] 2020-12-17 2020-12-17 Urgent Tiny Rodriguez [facility] [id number] Univers 18:01:59 18:21:59 Care Reggie [id number] [facility] [id number] Nasim as Professio [phone] Il dical [address] Office [address] One 2020-12-17 2020-12-17 Outpatient [facility] [id number] Univers 18:20:00 18:20:00 [id number] [facility] 2020-12-17 2020-12-17 Outpatient R ANGELO [facility] [id number] Univers 18:20:00 18:20:00 REGGIE rincon o f [facility] 2020-12-01 2020-12-01 Telephone Cindy [facility] [id number] Univers 00:00:00 00:00:00 Eugenia R PROFESSIONAL NURSING ASSISTANT [id number] ity [facility] [id number] Nasim as MATERNAL [phone] Med ical & CHILD [address] [place] [address] 2020-08-10 2020-08-10 Outpatient R [facility] [id number] Univers 13:00:00 13:00:[facility] [id number] [facility] 2020-08-10 2020-08-10 Outpatient R [facility] [id number] Univers 13:00:00 13:00:00 ity of [facility] 2020-07-14 2020-07-14 Office Cindy [facility] [id number] Univers 15:02:07 15:22:33 Visit Eugenia Ac PROFESSIONAL NURSING ASSISTANT [id number] ity [facility] [id number] Nasim as MATERNAL [phone] Med ical & CHILD [address] [place] [address] 2020-07-14 2020-07-14 Outpatient R CINDY [facility] [id number] Univers 15:15:00 15:15:00 ROSMIL [id number] ity o f [facility] 2020-07-14 2020-07-14 Outpatient R CINDY [facility] [id number] Univers 15:15:00 15:15:00 CIERAREGINALDO ity o f [facility] 2020-05-22 2020-05-22 Laboratory Lab, [facility] Fam Pob I [facility] 1.2. [id number] [id number] Univers 11:48:33 12:08:33 Only [facility] [id number] ity [facility] [id number] Nasim as Professio [phone] Il dical [address] Office [address] One 2020-05-22 2020-05-22 Outpatient R [facility] [id number] Univers 11:40:00 11:40:00 ity [facility] 2020-05-22 2020-05-22 Outpatient R [facility] [id number] Univers 10:40:00 10:40:00 [facility] ity [facility] 2020-05-18 2020-05-18 Outpatient R [facility] [id number] Univers 13:00:00 13:00:00 ity of [facility] 2020-05-18 2020-05-18 Outpatient R [facility] [id number] Univers 13:00:00 13:00:00 ity of [facility] 2020-05-18 2020-05-18 Nurse Visit, Corky-Rmchp Nurse [facility] 1.2 .840.114 [id number] Univers 09:12:49 09:27:49 Visit Akinelsa, Rayne C PROFESSIONAL NURSING ASSISTANT [id number]. 10 ity of [facility] [id number] Nasim as MATERNAL [phone] [facility] CHILD [address] [place] [address] 2020-02-12 2020-02-12 Nurse Visit, Corky-Rmchp Nurse [facility] [id number] Univers 13:19:42 13:34:15 Visit Nevaeh Rayne Manley PROFESSIONAL NURSING ASSISTANT [id number]. 10 ity of [facility] [id number] Nasim as MATERNAL [phone] [facility] & CHILD [address] [place] [address] 2020-02-12 2020-02-12 Outpatient R NEVAEH [facility] [id number] Univers 13:00:00 13:34:15 RAYNE claryissac o marc [facility] 2020-02-12 2020-02-12 Outpatient R [facility] [id number] Univers 13:00:00 13:00:00 ity of [facility] 2020-02-12 2020-02-12 [facility] [id number] Univers 13:00:00 13:00:00 RAYNE rincon o marc [facility] 2020-02-10 2020-02-10 Outpatient R [facility] [id number] Univers 15:30:00 15:30:00 ity of [facility] 2020-02-10 2020-02-10 Outpatient R [facility] [id number] Univers 15:30:00 15:30:00 ity of [facility] 2020-02-03 2020-02-03 Patient Doctor [facility] [id number] Univers 00:00:00 00:00:00 Secure Msg Unassigned, PROFESSIONAL NURSING ASSISTANT [id number] ity of [place] [facility] [id number] Nasim as MATERNAL [id number] [facility] CHILD [address] [place] [address] 2020-01-22 2020-01-22 Urgent Erica Sampson [facility] [id number] Univers 19:52:35 21:51:31 Care Unknown, Attending Health [id number] ity of Surgical [id number] Nasim as Specialti [phone] Il dical es [address] 2020-01-22 2020-01-22 Outpatient R [facility] [id number] Univers 20:00:00 20:00:00 [id number] [facility] 2020-01-22 2020-01-22 Outpatient R UNKNOWN, [facility] [id number] Univers 20:00:00 20:00:00 ATTENDING [facility] Results Test Description Test Time Test Comments Results Result Comments Source HERPES SIMPLEX VIRUS, TMA 2022-04-12 18:08:10 Test Item Value Reference Range Interpretation Comme nts SPECIMEN SOURCE (test code = SKIN 42499) HSV TYPE I (test code = NEGATIVE NEGATIVE 795272) HSV TYPE II (test code = NEGATIVE NEGATIVE NO TE: METHODOLOGY IS CHANGED TO 495528) POKKTGIC APTIMA TARGET-CAPTURE PHARMACIST AIDE-M EDIATED AMPLIFICATION ( TMA) WITH SEPARATE TARGETS AND REPORTING FOR HSV TYPE 1 AND TYPE 2. CPT CODE IS ADJUSTED. RE FERENCE INTERVAL IS UNCHANGED. SEE [email or web address] /[email or web address] UNLESS OTHERWIS E INDICATED, ALL TESTING PERFORM ED ATCLINICAL PATHOLOGY [facility]. [address] [place] [address] , [place] [address] LABORATORY DIRE CTOR: LINDA LENTZ M.D. CLIA NUMBER [id number] [place]. [id number] POCT GRP A STREP (MOLECULAR)2020-12-18 00:34:00 Test Item Value Reference Range Interpretation Comments POCT GP A STREP (test Negative Negative - code = 00134-9) Negative GABRIELLE (test code = GABRIELLE) accurate development and interpretation of all internal controls Lab Interpretation Normal (test code = 74507-4) [facility] GRP A STREP (MOLECULAR)2020-01-23 02:02:00 Test Item Value Reference Range Interpretation Comments POCT GP A STREP (test code = negative Negative - Negative 25458-7) Lab Interpretation (test code = Normal 44761-6) [facility] FLU A AND B (MOLECULAR)2020-01-23 01:50:00 Test Item Value Reference Range Interpretation Comments POCT INFLUENZA A (test code = negative Negative - Negative 3840) POCT INFLUENZA B (test code = negative Negative - Negative 3841) Lab Interpretation (test code = Normal 91734-1) [facility]
[2022-05-09 19:14] LABS: Absolute Lymphocytes (CBC) 1.4 K/uL (0.7-4.9); Hematocrit 37.4 % (36.0-45.0); Lymphocytes % 17.1 % (15.3-44.8); MPV 8.5 fL (7.6-11.3); RBC Red Blood Cell Count 4.95 M/uL (3.86-4.86)
[2022-05-09 19:28] LABS: Albumin 3.6 g/dL (3.4-5.0); Bilirubin Total 0.3 mg/dL (0.2-1.0); Potassium 3.7 mmol/L (3.5-5.1); Protein, Total 7.5 g/dL (6.4-8.2)
--- NOTE | 2022-05-09 19:40 | RAD REPORT ---
EXAM DESCRIPTION: RAD - Chest Single View - 05/09/2022 7:28 pm CLINICAL HISTORY: CHEST PAIN, right-side COMPARISON: Two view chest February 2015 TECHNIQUE: AP portable chest image was obtained 05/09/2022 7:28 pm . FINDINGS: Shallow inspiration, large body habitus and under penetrated technique accentuate heart, v asculature and lung markings. No focal mass or consolidation. Heart size is magnified by exam limitations. Significant failure or volume overload not suspected. Tr achea is midline. No measurable pleural effusion and no pneumothorax. No acute bony abnormality seen. No acute aortic findings suspected. IMPRESSION: No acute cardiopulmonary process.
[2022-05-09] MEDS ORDERED: KETOROLAC 30 MG/ML INJ ONE (19:53)
[2022-05-09 19:57] LABS: Urine Blood Negative (Negative); Urine Glucose Negative (Negative); Urine Protein 1+ (Negative); Urine Specific Gravity >=1.030 (1.005-1.030); Urine pH 5.5 (5.0-7.0)
--- NOTE | 2022-05-09 20:21 | EDPHYS ---
Physician Documentation [facility] Name: Mercedes Cuello Age: 36 yrs Sex: Female : 1985 Arrival Date: 05/09/2022 Time: 18:08 Bed 10 Private MD: Can Segovia ED Physician Yinka Jacob Historical: - Allergies: 05/09 18:37 ANTIHISTAMINES (swelling); jb4 - Home Meds: 18:37 Lexapro Oral [Active]; B/p med [Active]; jb4 - PMHx: 18:37 Depression; Herniated disc/ back pain; uterine fibroids; jb4 - PSHx: 18:37 Cholecystectomy; ; cleft lip; back surgery; jb4 - Immunization history:: Adult Immunizations up to date. - Social history:: Smoking status: Patient denies any tobacco usage or history of. Vital Signs: 18:25 BP 152 / 93; Pulse 94; Resp 16; Temp 98.4(TE); Pulse Ox 96% on R/A; Weight 154.22 kg jb4 (R); Height 5 ft. 7 in. (170.18 cm) (R); Pain 0/10; 20:43 BP 148 / 72; Pulse 80; Resp 19; Temp 97.3(T); Pulse Ox 97% on R/A; kl 20:43 BP 152 / 88; Pulse 86; Resp 16; Temp 98.4(T); Pulse Ox 99% on R/A; Pain 3/10; kl 18:25 Body Mass Index 53.25 (154.22 kg, 170.18 cm) jb4 MDM: 18:21 Patient medically screened. kb 20:19 Data reviewed: vital signs, nurses notes. Data interpreted: Pulse oximetry: on room air kb is 96 %. Interpretation: normal. Counseling: I had a detailed discussion with the patient and/or guardian regarding: the historical points, exam findings, and any diagnostic results supporting the discharge/admit diagnosis, lab results, radiology results, the need for outpatient follow up, a family practitioner, to return to the emergency department if symptoms worsen or persist or if there are any questions or concerns that arise at home. 05/09 18:24 Order name: CBC with Diff; Complete Time: 19:18 kb 05/09 18:24 Order name: CMP; Complete Time: 19:29 kb 05/09 18:24 Order name: Lipase; Complete Time: 19:29 kb 05/09 18:24 Order name: Chest Single View XRAY; Complete Time: 19:44 kb 05/09 19:58 Order name: Urine Dipstick-Ancillary; Complete Time: 20:00 EDMS 05/09 18:24 Order name: IV Saline Lock; Complete Time: 19:05 kb 05/09 18:24 Order name: Labs collected and sent; Complete Time: 19:05 kb 05/09 18:24 Order name: Urine Dipstick-Ancillary (obtain specimen) kb Administered Medications: 19:52 Drug: Ketorolac 15 mg Route: IVP; Site: right antecubital; kl 20:43 Follow up: BP 148 / 72; Pulse 80 bpm; Resp 19 bpm; Temp 97.3 Tympanic; Pulse Ox 97% RA kl Disposition Summary: 05/09/22 20:20 Discharge Ordered Location: Home kb Condition: Stable kb Diagnosis - Upper abdominal pain, unspecified kb Followup: kb - With: Emergency Department - When: As needed - Reason: Worsening of condition Followup: kb - With: Private Physician - When: 2 - 3 days - Reason: Recheck today's complaints, Continuance of care, Re-evaluation by your physician Discharge Instructions: - Discharge Summary Sheet kb - Abdominal Pain, Adult, [id number] kb Forms: - Medication Reconciliation Form kb - Thank You Letter kb - Antibiotic Education kb - Prescription Opioid Use kb Prescriptions: - Cyclobenzaprine 10 mg Oral Tablet - take 1 tablet by ORAL route every 8 hours As needed; 15 tablet; Refills: 0, kb Product Selection Permitted - Diclofenac Sodium 75 mg Oral tablet,delayed release (DR/EC) - take 1 tablet by ORAL route 2 times per day As needed; 30 tablet; Refills: 0, kb Product Selection Permitted Signatures: Dispatcher [employer] Renetta Boo FNP-C FNP-Antonina Miller, RN RN Richard Woodard RN RN jb4
--- NOTE | 2022-05-09 20:21 | ER ---
Nurse's Notes [facility] Name: Mercedes Cuello Age: 36 yrs Sex: Female : 1985 Arrival Date: 05/09/2022 Time: 18:08 Bed 10 Private MD: Can Segovia Diagnosis: Upper abdominal pain, unspecified Presentation: 05/09 18:25 Chief complaint: Patient states: I am having right side pain that radiates to the jb4 center of my chest. It started one week ago and comes and goes. If I don't move I have no pain, moving its 08/22. 18:25 Coronavirus screen: At this time, the client does not indicate any symptoms associated jb4 with coronavirus-19. Ebola Screen: No symptoms or risks identified at this time. Initial Sepsis Screen: Does the patient meet any 2 criteria? No. Patient's initial sepsis screen is negative. Does the patient have a suspected source of infection? No. Patient's initial sepsis screen is negative. Risk Assessment: Do you want to hurt yourself or someone else? Patient reports no desire to harm self or others. Onset of symptoms was May 09, 2022. Transition of care: patient was not received from another setting of care. 18:25 Method Of Arrival: Ambulatory jb4 18:25 Acuity: ALEXYS 3 jb4 Historical: - Allergies: 18:37 ANTIHISTAMINES (swelling); jb4 - Home Meds: 18:37 Lexapro Oral [Active]; B/p med [Active]; jb4 - PMHx: 18:37 Depression; Herniated disc/ back pain; uterine fibroids; jb4 - PSHx: 18:37 Cholecystectomy; ; cleft lip; back surgery; jb4 - Immunization history:: Adult Immunizations up to date. - Social history:: Smoking status: Patient denies any tobacco usage or history of. Screenin:44 Abuse screen: Denies threats or abuse. Nutritional screening: No deficits noted. kl Tuberculosis screening: No symptoms or risk factors identified. Fall Risk None identified. Assessment: 20:42 General: Appears in no apparent distress. well groomed, well developed, Behavior is kl calm, cooperative, appropriate for age. Pain: Complains of pain in right upper quadrant Pain currently is 2 out of 10 on a pain scale. GI: Bowel sounds present X 4 quads. Abd is soft X 4 quads Abdomen is tender to palpation in right upper quadrant. Vital Signs: 18:25 BP 152 / 93; Pulse 94; Resp 16; Temp 98.4(TE); Pulse Ox 96% on R/A; Weight 154.22 kg jb4 (R); Height 5 ft. 7 in. (170.18 cm) (R); Pain 0/10; 20:43 BP 148 / 72; Pulse 80; Resp 19; Temp 97.3(T); Pulse Ox 97% on R/A; kl 20:43 BP 152 / 88; Pulse 86; Resp 16; Temp 98.4(T); Pulse Ox 99% on R/A; Pain 3/10; kl 18:25 Body Mass Index 53.25 (154.22 kg, 170.18 cm) jb4 ED Course: 18:08 Patient arrived in ED. mr 18:09 Can Segovia MD is Private Physician. mr 18:09 Renetta Reyes [facility]-C [facility] kb 18:09 Yinka Jacob MD is Attending Physician. kb 18:37 Triage completed. jb4 18:37 Arm band placed on right wrist. jb4 18:54 Payton Carballo, RN is Primary Nurse. iw 19:04 Inserted saline lock: 22 gauge in right antecubital area, using aseptic technique. tp1 Blood collected. 19:29 Chest Single View XRAY In Process Unspecified. EDMS 20:45 Patient has correct armband on for positive identification. kl 20:45 No provider procedures requiring assistance completed. IV discontinued, intact, kl bleeding controlled, No redness/swelling at site. Pressure dressing applied. Administered Medications: 19:52 Drug: Ketorolac 15 mg Route: IVP; Site: right antecubital; kl 20:43 Follow up: BP 148 / 72; Pulse 80 bpm; Resp 19 bpm; Temp 97.3 Tympanic; Pulse Ox 97% RA kl Medication: 20:45 VIS not applicable for this client. kl Outcome: 20:20 Discharge ordered by . kb 20:44 Discharged to home ambulatory. kl 20:44 Condition: good 20:44 Discharge instructions given to patient, Instructed on discharge instructions, follow up and referral plans. medication usage, Demonstrated understanding of instructions, follow-up care, medications, Prescriptions given X 2. 20:45 Patient left the ED. kl Signatures: Dispatcher [employer] EDMS Renetta Reyes, GENE DENGP-Antonina Miller RN RN kl Rivera, Mary mr Williams, Irene, RN Richard Souza RN RN jbValentina Mcfadden [facility]
[2022-05-09 21:46] VITALS: TEMP 98.4
[2022-05-09 21:48] VITALS: BP 152/88; O2SAT 99
== END 2022-05-09 20:45 | disposition home or self-care (01) ==
LOC: ER 18:07
DX: R10.11 Right upper quadrant pain (principal); F32.A Depression, unspecified; Z88.8 Allergy status to other drugs, medicaments and biological substances
CPT/HCPCS: 36415; 71045; 80053; 81003; 83690; 85025

== ENCOUNTER → 2023-11-25 | Emergency (ER) | payer BC ==
[~2023-11-25] MED LIST: DIAZEPAM 5 MG TABLET ONE; HYDROCODONE/APAP 7.5/325 MG TAB ONE; KETOROLAC 30 MG/ML INJ ONE
--- OUTSIDE RECORDS SUMMARY | 2023-11-25 15:36 | XMS REPORT | Continuity of Care Document ---
Author Name Unknown Address [address] [facility] [address] [place] [address] [facility] thconnect Address [address] [facility] 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 Name Role Phone Rayne Curry Primary Care Physicia n Leno Barnett Attending Clinician [phone] Unknown, Attending Attending Clinician Unavailab LENO Sapp Attending Clinician Unavailable Doctor Unassigned, [place] Attending Clinician U navailable Provider, [facility] Attending Clinician Unavailable Gertrudis Crabtree Attending Clinician [phone] GERTRUDIS PALACIO Attending Clinician UnavailGLORIA Painting Attending Clinician Unavailable Gloria Ruffin MD Attending Clinician [phone] Only, Corky James Test Attending Clinician UnavailSTEVE Alcantara Attending Clinician Unavailable Elke Anderson RN Attending Clinician Unavailab Nata Ann Attending Clinician [phone] NATA SIMON Attending Clinician Unavailable REGGIE ZHU Attending Clinician Unavailab Meliton Ortega MD Attending Clinician [phone] Reggie Epperson Attending Clinician + [phone] MARCELA FELICIANO Attending Clinician Unavailable GC_[email or web address] Attending Clinician Unavaila BRAD Arreola Attending Clinician Unavail Brad Moss DO Attending Clinician [phone] Jose Raul Rodriguez PA-C Attending Clinician [phone] Eugenia Ojeda Attending Clinician + [phone] EUGENIA WHITE Attending Clinician Unavailab le Lab, Adc Fam Pob I Attending Clinician Unavailab Tyesha Rodriguez Attending Clinician [phone] TYESHA DAILEY Attending Clinician Unavailabl e [facility], [facility]ending [facility]ician Unava ilRayne Oliver Attending Clinician + RAYNE GUADARRAMA Attending Clinician Unavail Erica Ardon Attending Clinician + [phone] UNKNOWN, ATTENDING Attending Clinician Unavailab maame SMART_[email or web address]_J Admitting Clinician Unavaila ble Payers Payer Name Policy Type Policy Number Effective Date Expirati on Date Source [place] [id number] 2019 00:00:00 Problems Condition Name Condition Details Condition Category Status Onset Date Resolution Date Last Treatment Date Treating Clinician Comments Source Otalgia of left ear Otalgia of left ear Disease Active 03-18 00:00: 00 [facility] Non-recurr ent acute serous otitis media of left ear Non-recurr ent acute serous otitis media of left ear Disease Active 03-18 00:00: 00 [facility] Otalgia of left ear Otalgia of left ear Disease Active 03-18 00:00: 00 [facility] Trichomona l vulvovagin itis Trichomona l vulvovagin itis Disease Active 2018-11 00:00: 00 [facility] BMI 45.0-49.9, adult BMI 45.0-49.9, adult Disease Active 2018-11 00:00: 00 [facility] Pain pelvic Pain pelvic Disease Active 2018-11 00:00: 00 [facility] Well woman exam Well woman exam Disease Active 2016-1 2-30 00:00: 00 [facility] Other general counseling and advice for contracept deysi management Other general counseling and advice for contracept deysi management Disease Active 03-24 00:00: 00 Overview: Formattin g of this note might be different from the original. 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 Stopped effexor 10/2013 when she found out she was . [facility] Allergies, Adverse Reactions, Alerts Allergy Name Allergy Type Status Severity Reaction(s) Onset Date Inactive Date Treating Clinician Comments Source Antihist amines - Alkylami ne Propensi ty to adverse reaction s to drug Active Swelling 2011-11 0- 00:00: 00 [facility] ANTIHIST AMINES - ALKYLAMI NE Drug Class Active Swelling 2011-11 0-05 00:00: 00 [facility] Antihist amines - Alkylami ne Propensi ty to adverse reaction s to drug Active Swelling 2011-11 0 00:00: 00 Claritin and OTC cold meds. [facility] Social History Social Habit Start Date Stop Date Quantity Comments Source History SDOH Alcohol Frequency [facility] History SDOH [facility]OH Alcohol Binge [facility] Gender identity [facility] Exposure to SARS-CoV-2 (event) 2022-07-05 00:00:00 2022-07-15 12:51:00 Not sure [facility] Alcohol intake 2020-05-18 00:00:00 2020-05-18 00:00:00 0 /d [facility] History of Social function 2020-01-22 00:00:00 2020-01-22 00:00:00 [facility] Tobacco use and exposure 2014-05-29 00:00:00 2014-05-29 00:00:00 Smokeless tobacco non-user [facility] History of tobacco use 2013-12-26 00:00:00 Cigarette Smoker [facility] Alcohol Comment 2013-11-26 00:00:00 2013-11-26 00:00:00 socially only prior to [facility] Sex Assigned At 1985 00:00:00 1985 00:00:00 [facility] Smoking Status Start Date Stop Date Source Ex-smoker 2014-05-29 00:00:00 2014-[facility]29 [facility] Ordered Medication Name Filled Medication Name Start Date Stop Date Current Medication? Ordering Clinician Indication Dosage Frequency Signature (SIG) Comments Components Source guaiFENesin 400 mg tablet 07-15 00:00: 00 Yes [id number] 400mg Take 1 tablet by mouth every 4 (four) hours as needed for Cough. [facility] promethazin e-dextromet horphan 6.25-15 mg/5 mL syrup 07-15 00:00: 00 Yes [id number] 5mL Take 5 mL by mouth 4 (four) times daily as needed for Cough. [facility] fluticasone propionate 50 mcg/actuati on nasal spray 07-15 00:00: 00 Yes [id number] 1{spray } Use 1 Hannacroix in each nostril in the morning. [facility] guaiFENesin 400 mg tablet 07-15 00:00: 00 Yes [id number] 400mg Take 1 tablet by mouth every 4 (four) hours as needed for Cough. [facility] promethazin e-dextromet horphan 6.25-15 mg/5 mL syrup 0 07-15 00:00: 00 Yes [id number] 5mL Take 5 mL by mouth 4 (four) times daily as needed for Cough. [facility] fluticasone propionate 50 mcg/actuati on nasal spray 07-15 00:00: 00 Yes [id number] 1{spray } Use 1 Hannacroix in each nostril in the morning. [facility] guaiFENesin 400 mg tablet 07-15 00:00: 00 Yes [id number] 400mg Take 1 tablet by mouth every 4 (four) hours as needed for Cough. [facility] promethazin e-dextromet horphan 6.25-15 mg/5 mL syrup 07-15 00:00: 00 Yes [id number] 5mL Take 5 mL by mouth 4 (four) times daily as needed for Cough. [facility] fluticasone propionate 50 mcg/actuati on nasal spray 07-15 00:00: 00 Yes [id number] 1{spray } Use 1 Hannacroix in each nostril in the morning. [facility] benzonatate 100 mg capsule 0 11-15 00:00: 00 Yes [id number] 200mg Take 2 capsules by mouth 2 (two) times daily as needed for Cough. [facility] guaiFENesin 400 mg tablet 11-15 00:00: 00 Yes [id number] 400mg Take 1 tablet by mouth every 4 (four) hours as needed for Cough. [facility] benzonatate 100 mg capsule 0 - 00:00: 00 Yes [id number] 200mg Take 2 capsules by mouth 2 (two) times daily as needed for Cough. [facility] guaiFENesin 400 mg tablet 0 - 00:00: 00 Yes [id number] 400mg Take 1 tablet by mouth every 4 (four) hours as needed for Cough. [facility] benzonatate 100 mg capsule 0 - 00:00: 00 07-15 00:00 :00 No [id number] 200mg Take 2 capsules by mouth 2 (two) times daily as needed for Cough. [facility] guaiFENesin 400 mg tablet 11-15 00:00: 00 07-15 00:00 :00 No [id number] 400mg Take 1 tablet by mouth every 4 (four) hours as needed for Cough. [facility] amoxicillin -clavulanat e (AUGMENTIN) 875-125 mg per tablet 03-18 00:00: 00 Yes [id number] 1{tbl} Take 1 tablet by mouth 2 (two) times daily. [facility] ibuprofen 600 mg tablet 03-18 00:00: 00 Yes [id number] 600mg Take 1 tablet by mouth every 6 (six) hours as needed for Pain (scale 4-6) or Temp > 38.5 C. [facility] amoxicillin -clavulanat e (AUGMENTIN) 875-125 mg per tablet 03-18 00:00: 00 Yes [id number] 1{tbl} Take 1 tablet by mouth 2 (two) times daily. [facility] ibuprofen 600 mg tablet 03-18 00:00: 00 Yes [id number] 600mg Take 1 tablet by mouth every 6 (six) hours as needed for Pain (scale 4-6) or Temp > 38.5 C. [facility] amoxicillin -clavulanat e (AUGMENTIN) 875-125 mg per tablet 03-18 00:00: 00 Yes [id number] 1{tbl} Take 1 tablet by mouth 2 (two) times daily. [facility] ibuprofen 600 mg tablet 03-18 00:00: 00 Yes [id number] 600mg Take 1 tablet by mouth every 6 (six) hours as needed for Pain (scale 4-6) or Temp > 38.5 C. [facility] amoxicillin -clavulanat e (AUGMENTIN) 875-125 mg per tablet 03-18 00:00: 00 Yes [id number] 1{tbl} Take 1 tablet by mouth 2 (two) times daily. [facility] ibuprofen 600 mg tablet 03-18 00:00: 00 Yes [id number] 600mg Take 1 tablet by mouth every 6 (six) hours as needed for Pain (scale 4-6) or Temp > 38.5 C. [facility] amoxicillin -clavulanat e (AUGMENTIN) 875-125 mg per tablet 03-18 00:00: 00 Yes [id number] 1{tbl} Take 1 tablet by mouth 2 (two) times daily. [facility] ibuprofen 600 mg tablet 03-18 00:00: 00 Yes [id number] 600mg Take 1 tablet by mouth every 6 (six) hours as needed for Pain (scale 4-6) or Temp > 38.5 C. [facility] amoxicillin -clavulanat e (AUGMENTIN) 875-125 mg per tablet 03-18 00:00: 00 Yes [id number] 1{tbl} Take 1 tablet by mouth 2 (two) times daily. [facility] ibuprofen 600 mg tablet 03-18 00:00: 00 Yes [id number] 600mg Take 1 tablet by mouth every 6 (six) hours as needed for Pain (scale 4-6) or Temp > 38.5 C. [facility] amoxicillin -clavulanat e (AUGMENTIN) 875-125 mg per tablet 03-18 00:00: 00 Yes [id number] 1{tbl} Take 1 tablet by mouth 2 (two) times daily. [facility] ibuprofen 600 mg tablet 03-18 00:00: 00 Yes [id number] 600mg Take 1 tablet by mouth every 6 (six) hours as needed for Pain (scale 4-6) or Temp > 38.5 C. [facility] amoxicillin -clavulanat e (AUGMENTIN) 875-125 mg per tablet 03-18 00:00: 00 Yes [id number] 1{tbl} Take 1 tablet by mouth 2 (two) times daily. [facility] amoxicillin -clavulanat e (AUGMENTIN) 875-125 mg per tablet 03-18 00:00: 00 Yes [id number] 1{tbl} Take 1 tablet by mouth 2 (two) times daily. [facility] ibuprofen 600 mg tablet 03-18 00:00: 00 Yes [id number] 600mg Take 1 tablet by mouth every 6 (six) hours as needed for Pain (scale 4-6) or Temp > 38.5 C. [facility] ibuprofen 600 mg tablet 03-18 00:00: 00 Yes [id number] 600mg Take 1 tablet by mouth every 6 (six) hours as needed for Pain (scale 4-6) or Temp > 38.5 C. [facility] amoxicillin -clavulanat e (AUGMENTIN) 875-125 mg per tablet 03-18 00:00: 00 Yes [id number] 1{tbl} Take 1 tablet by mouth 2 (two) times daily. [facility] ibuprofen 600 mg tablet 03-18 00:00: 00 Yes [id number] 600mg Take 1 tablet by mouth every 6 (six) hours as needed for Pain (scale 4-6) or Temp > 38.5 C. [facility] acyclovir 400 mg tablet 12-01 00:00: 00 Yes [facility] acyclovir 400 mg tablet 12-01 00:00: 00 Yes [facility] acyclovir 400 mg tablet 12-01 00:00: 00 Yes [facility] acyclovir 400 mg tablet 12-01 00:00: 00 Yes [facility] acyclovir 400 mg tablet 12-01 00:00: 00 Yes [facility] acyclovir 400 mg tablet 12-01 00:00: 00 Yes [facility] acyclovir 400 mg tablet 12-01 00:00: 00 Yes [facility] acyclovir 400 mg tablet 12-01 00:00: 00 Yes [facility] acyclovir 400 mg tablet 12-01 00:00: 00 Yes [facility] acyclovir 400 mg tablet - 00:00: 00 Yes [facility] acyclovir 400 mg tablet 0 12-01 00:00: 00 Yes [facility] acyclovir 400 mg tablet 12-01 00:00: 00 Yes [facility] norgestimat e-ethinyl estradioL (ORTHO TRI-CYCLEN, 28,) 0.18/0.215/ 0.25 mg-35 mcg (28) tablet 07-14 00:00: 00 Yes [id number] 1{tbl} Take 1 tablet by mouth daily. [facility] norgestimat e-ethinyl estradioL (ORTHO TRI-CYCLEN, 28,) 0.18/0.215/ 0.25 mg-35 mcg (28) tablet 07-14 00:00: 00 Yes [id number] 1{tbl} Take 1 tablet by mouth daily. [facility] norgestimat e-ethinyl estradioL (ORTHO TRI-CYCLEN, 28,) 0.18/0.215/ 0.25 mg-35 mcg (28) tablet 07-14 00:00: 00 Yes [id number] 1{tbl} Take 1 tablet by mouth daily. [facility] norgestimat e-ethinyl estradioL (ORTHO TRI-CYCLEN, 28,) 0.18/0.215/ 0.25 mg-35 mcg (28) tablet 07-14 00:00: 00 Yes [id number] 1{tbl} Take 1 tablet by mouth daily. [facility] norgestimat e-ethinyl estradioL (ORTHO TRI-CYCLEN, 28,) 0.18/0.215/ 0.25 mg-35 mcg (28) tablet 07-14 00:00: 00 Yes [id number] 1{tbl} Take 1 tablet by mouth daily. [facility] norgestimat e-ethinyl estradioL (ORTHO TRI-CYCLEN, 28,) 0.18/0.215/ 0.25 mg-35 mcg (28) tablet 07-14 00:00: 00 03-18 00:00 :00 No [id number] 1{tbl} Take 1 tablet by mouth daily. [facility] acyclovir 400 mg tablet 2019-0 3- 00:00: 00 02-11 04:59 :00 No [id number] 400mg Take 1 tablet by mouth 3 (three) times daily for 5 days. [facility] benzonatate 200 mg capsule 2019-0 3-11 00:00: 00 Yes [id number] 200mg Take 1 capsule by mouth 3 (three) times daily as needed for Cough. [facility] codeine-gua ifenesin 10-100 mg/5 mL solution 2020-0 3-11 00:00: 00 Yes [id number] 5mL Take 5 mL by mouth every 6 (six) hours as needed for Cough. [facility] benzonatate 200 mg capsule 2020-0 3-11 00:00: 00 Yes [id number] 200mg Take 1 capsule by mouth 3 (three) times daily as needed for Cough. [facility] codeine-gua ifenesin 10-100 mg/5 mL solution 2020-0 3-11 00:00: 00 Yes [id number] 5mL Take 5 mL by mouth every 6 (six) hours as needed for Cough. [facility] benzonatate 200 mg capsule 2019-0 3-11 00:00: 00 Yes [id number] 200mg Take 1 capsule by mouth 3 (three) times daily as needed for Cough. [facility] codeine-gua ifenesin 10-100 mg/5 mL solution 2020-0 3-11 00:00: 00 Yes [id number] 5mL Take 5 mL by mouth every 6 (six) hours as needed for Cough. [facility] benzonatate 200 mg capsule 2020-0 3-11 00:00: 00 Yes [id number] 200mg Take 1 capsule by mouth 3 (three) times daily as needed for Cough. [facility] codeine-gua ifenesin 10-100 mg/5 mL solution 2020-0 3-11 00:00: 00 Yes [id number] 5mL Take 5 mL by mouth every 6 (six) hours as needed for Cough. [facility] benzonatate 200 mg capsule 2020-0 3-11 00:00: 00 Yes [id number] 200mg Take 1 capsule by mouth 3 (three) times daily as needed for Cough. [facility] codeine-gua ifenesin 10-100 mg/5 mL solution 2020-0 3-11 00:00: 00 Yes [id number] 5mL Take 5 mL by mouth every 6 (six) hours as needed for Cough. [facility] benzonatate 200 mg capsule 2020-0 3-11 00:00: 00 Yes [id number] 200mg Take 1 capsule by mouth 3 (three) times daily as needed for Cough. [facility] codeine-gua ifenesin 10-100 mg/5 mL solution 2020-0 3-11 00:00: 00 Yes [id number] 5mL Take 5 mL by mouth every 6 (six) hours as needed for Cough. [facility] benzonatate 200 mg capsule 2020-0 3-11 00:00: 00 Yes [id number] 200mg Take 1 capsule by mouth 3 (three) times daily as needed for Cough. [facility] codeine-gua ifenesin 10-100 mg/5 mL solution 2020-0 3-11 00:00: 00 Yes [id number] 5mL Take 5 mL by mouth every 6 (six) hours as needed for Cough. [facility] benzonatate 200 mg capsule 2020-0 3-11 00:00: 00 Yes [id number] 200mg Take 1 capsule by mouth 3 (three) times daily as needed for Cough. [facility] codeine-gua ifenesin 10-100 mg/5 mL solution 2020-0 3-11 00:00: 00 Yes [id number] 5mL Take 5 mL by mouth every 6 (six) hours as needed for Cough. [facility] benzonatate 200 mg capsule 2020-0 3-11 00:00: 00 Yes [id number] 200mg Take 1 capsule by mouth 3 (three) times daily as needed for Cough. [facility] codeine-gua ifenesin 10-100 mg/5 mL solution 2020-0 3-11 00:00: 00 Yes [id number] 5mL Take 5 mL by mouth every 6 (six) hours as needed for Cough. [facility] benzonatate 200 mg capsule 3-11 00:00: 00 Yes [id number] 200mg Take 1 capsule by mouth 3 (three) times daily as needed for Cough. [facility] codeine-gua ifenesin 10-100 mg/5 mL solution 3-11 00:00: 00 Yes [id number] 5mL Take 5 mL by mouth every 6 (six) hours as needed for Cough. [facility] benzonatate 200 mg capsule 3- 00:00: 00 03-18 00:00 :00 No [id number] 200mg Take 1 capsule by mouth 3 (three) times daily as needed for Cough. [facility] codeine-gua ifenesin 10-100 mg/5 mL solution 01-21 00:00: 00 03-18 00:00 :00 No [id number] 5mL Take 5 mL by mouth every 6 (six) hours as needed for Cough. [facility] benzonatate 200 mg capsule 01-21 00:00: 00 03-18 00:00 :00 No [id number] 200mg Take 1 capsule by mouth 3 (three) times daily as needed for Cough. [facility] codeine-gua ifenesin 10-100 mg/5 mL solution 01-21 00:00: 00 03-18 00:00 :00 No [id number] 5mL Take 5 mL by mouth every 6 (six) hours as needed for Cough. [facility] medroxyPROG ESTERone (DEPO-PROVE RA) injection 150 mg 11-19 00:00: 00 10-19 23:59 :00 No 150mg [facility] medroxyPROG ESTERone (DEPO-PROVE RA) injection 150 mg 11-19 00:00: 00 10-19 23:59 :00 No 150mg [facility] medroxyPROG ESTERone (DEPO-PROVE RA) injection 150 mg 11-19 00:00: 00 10-19 23:59 :00 No 150mg 150 mg, Intramuscu lar, [id number], 4 doses, First dose on Mon11/18/19 at 1800, Last dose on Mon07/27/20 at 1800, Routine [facility] medroxyPROG ESTERone (DEPO-PROVE RA) injection 150 mg 2020-0 1-07 00:00: 00 10-19 23:59 :00 No 150mg [facility] medroxyPROG ESTERone (DEPO-PROVE RA) injection 150 mg 2020-0 -07 00:00: 00 10-19 23:59 :00 No 150mg 150 mg, Intramuscu lar, [id number], 4 doses, First dose on Mon11/18/19 at 1800, Last dose on Mon07/27/20 at 1800, Routine [facility] medroxyPROG ESTERone (DEPO-PROVE RA) injection 150 mg 2020-0 -07 00:00: 00 10-19 23:59 :00 No 150mg [facility] medroxyPROG ESTERone (DEPO-PROVE RA) injection 150 mg 2020-0 1-07 00:00: 00 10-19 23:59 :00 No 150mg [facility] medroxyPROG ESTERone (DEPO-PROVE RA) injection 150 mg 2019-0 1-07 00:00: 00 10-19 23:59 :00 No 150mg [facility] medroxyPROG ESTERone (DEPO-PROVE RA) injection 150 mg 2019-0 -07 00:00: 00 10-19 23:59 :00 No 150mg [facility] medroxyPROG ESTERone (DEPO-PROVE RA) injection 150 mg 2020-0 1-07 00:00: 00 10-19 23:59 :00 No 150mg [facility] Immunizations Ordered Immunization Name Filled Immunization Name Date Status Comments Source SARS-COV-2 COVID-19 PFIZER VACCINE 2021-02-24 00:00:00 Completed [facility] SARS-COV-2 COVID-19 PFIZER VACCINE 2021-02-24 00:00:00 Completed [facility] SARS-COV-2 COVID-19 PFIZER VACCINE 2021-02-24 00:00:00 Completed [facility] SARS-COV-2 COVID-19 PFIZER VACCINE 2021-02-24 00:00:00 Completed [facility] SARS-COV-2 COVID-19 PFIZER VACCINE 2021-02-24 00:00:00 Completed [facility] SARS-COV-2 COVID-19 PFIZER VACCINE 2021-02-24 00:00:00 Completed [facility] SARS-COV-2 COVID-19 PFIZER VACCINE 2021-02-24 00:00:00 Completed [facility] SARS-COV-2 COVID-19 PFIZER VACCINE 2021-02-24 00:00:00 Completed [facility] SARS-COV-2 COVID-19 PFIZER VACCINE 2021-02-24 00:00:00 Completed [facility] SARS-COV-2 COVID-19 PFIZER VACCINE 2021-02-24 00:00:00 Completed [facility] SARS-COV-2 COVID-19 PFIZER VACCINE 2021-02-03 00:00:00 Completed [facility] SARS-COV-2 COVID-19 PFIZER VACCINE 2021-02-03 00:00:00 Completed [facility] SARS-COV-2 COVID-19 PFIZER VACCINE 2021-02-03 00:00:00 Completed [facility] SARS-COV-2 COVID-19 PFIZER VACCINE 2021-02-03 00:00:00 Completed [facility] SARS-COV-2 COVID-19 PFIZER VACCINE 2021-02-03 00:00:00 Completed [facility] SARS-COV-2 COVID-19 PFIZER VACCINE 2021-02-03 00:00:00 Completed [facility] SARS-COV-2 COVID-19 PFIZER VACCINE 2021-02-03 00:00:00 Completed [facility] SARS-COV-2 COVID-19 PFIZER VACCINE 2021-02-03 00:00:00 Completed [facility] SARS-COV-2 COVID-19 PFIZER VACCINE 2021-02-03 00:00:00 Completed [facility] SARS-COV-2 COVID-19 PFIZER VACCINE 2021-02-03 00:00:00 Completed [facility] Varicella (varivax)(chicken pox) 2014-08-11 00:00:00 Completed [facility] Varicella (varivax)(chicken pox) 2014-08-11 00:00:00 Completed [facility] Varicella (varivax)(chicken pox) 2014-08-11 00:00:00 Completed [facility] Varicella (varivax)(chicken pox) 2014-08-11 00:00:00 Completed [facility] Varicella (varivax)(chicken pox) 2014-08-11 00:00:00 Completed [facility] Varicella (varivax)(chicken pox) 2014-08-11 00:00:00 Completed [facility] Varicella (varivax)(chicken pox) 2014-08-11 00:00:00 Completed [facility] Varicella (varivax)(chicken pox) 2014-08-11 00:00:00 Completed [facility] Varicella (varivax)(chicken pox) 2014-08-11 00:00:00 Completed [facility] Varicella (varivax)(chicken pox) 2014-08-11 00:00:00 [facility] [facility] Varicella (varivax)(chicken pox) 2014-08-11 00:00:00 Completed [facility] Varicella (varivax)(chicken pox) 2014-08-11 00:00:00 Completed [facility] Varicella (varivax)(chicken pox) 2014-08-11 00:00:00 Completed [facility] Varicella (varivax)(chicken pox) 2014-08-11 00:00:00 Completed [facility] Varicella (varivax)(chicken pox) 2014-08-11 00:00:00 Completed [facility] Varicella (varivax)(chicken pox) 2014-08-11 00:00:00 Completed [facility] Varicella (varivax)(chicken pox) 2014-08-11 00:00:00 Completed [facility] Varicella (varivax)(chicken pox) 2014-08-11 00:00:00 Completed [facility] Varicella (varivax)(chicken pox) 2014-08-11 00:00:00 Completed [facility] Varicella (varivax)(chicken pox) 2014-08-11 00:00:00 Completed [facility] Varicella (varivax)(chicken pox) 2014-06-28 00:00:00 Completed [facility] 2014-06-28 00:00:00 Completed [facility] Varicella (varivax)(chicken pox) 2014-06-28 00:00:00 Completed [facility] 2014-06-28 00:00:00 Completed [facility] Varicella (varivax)(chicken pox) 2014-06-28 00:00:00 Completed [facility] 2014-06-28 00:00:00 Completed [facility] Varicella (varivax)(chicken pox) 2014-06-28 00:00:00 Completed [facility] 2014-06-28 00:00:00 Completed [facility] Varicella (varivax)(chicken pox) 2014-06-28 00:00:00 Completed [facility] 2014-06-28 00:00:00 Completed [facility] Varicella (varivax)(chicken pox) 2014-06-28 00:00:00 Completed [facility] 2014-06-28 00:00:00 Completed [facility] Varicella (varivax)(chicken pox) 2014-06-28 00:00:00 Completed [facility] 2014-06-28 00:00:00 Completed [facility] Varicella (varivax)(chicken pox) 2014-06-28 00:00:00 Completed [facility] 2014-06-28 00:00:00 Completed [facility] Varicella (varivax)(chicken pox) 2014-06-28 00:00:00 Completed [facility] 2014-06-28 00:00:00 Completed [facility] Varicella (varivax)(chicken pox) 2014-06-28 00:00:00 Completed [facility] 2014-06-28 00:00:00 Completed [facility] Varicella (varivax)(chicken pox) 2014-06-28 00:00:00 Completed [facility] 2014-06-28 00:00:00 Completed [facility] Varicella (varivax)(chicken pox) 2014-06-28 00:00:00 Completed [facility] 2014-06-28 00:00:00 Completed [facility] Varicella (varivax)(chicken pox) 2014-06-28 00:00:00 Completed [facility] 2014-06-28 00:00:00 Completed [facility] Varicella (varivax)(chicken pox) 2014-06-28 00:00:00 Completed [facility] 2014-06-28 00:00:00 Completed [facility] Varicella (varivax)(chicken pox) 2014-06-28 00:00:00 Completed [facility] 2014-06-28 00:00:00 Completed [facility] Varicella (varivax)(chicken pox) 2014-06-28 00:00:00 Completed [facility] 2014-06-28 00:00:00 Completed [facility] Varicella (varivax)(chicken pox) 2014-06-28 00:00:00 Completed [facility] 2014-06-28 00:00:00 Completed [facility] Varicella (varivax)(chicken pox) 2014-06-28 00:00:00 Completed [facility] 2014-06-28 00:00:00 Completed [facility] Varicella (varivax)(chicken pox) 2014-06-28 00:00:00 Completed [facility] 2014-06-28 00:00:00 Completed [facility] Varicella (varivax)(chicken pox) 2014-06-28 00:00:00 Completed [facility] MMR 2014-06-28 00:00:00 Completed [facility] Tdap 2014-04-24 00:00:00 Completed [facility] Tdap 2014-04-24 00:00:00 Completed [facility] TDAP 2014-04-24 00:00:00 Completed [facility] TDAP 2014-04-24 00:00:00 Completed [facility] TDAP 2014-04-24 00:00:00 Completed [facility] TDAP 2014-04-24 00:00:00 Completed [facility] TDAP 2014-04-24 00:00:00 Completed [facility] TDAP 2014-04-24 00:00:00 Completed [facility] TDAP 2014-04-24 00:00:00 Completed [facility] TDAP 2014-04-24 00:00:00 Completed [facility] TDAP 2014-04-24 00:00:00 Completed [facility] TDAP 2014-04-24 00:00:00 Completed [facility] TDAP 2014-04-24 00:00:00 Completed [facility] TDAP 2014-04-24 00:00:00 Completed [facility] TDAP 2014-04-24 00:00:00 Completed [facility] TDAP 2014-04-24 00:00:00 Completed [facility] TDAP 2014-04-24 00:00:00 Completed [facility] TDAP 2014-04-24 00:00:00 Completed [facility] TDAP 2014-04-24 00:00:00 Completed [facility] Tdap 2014-04-24 00:00:00 Completed [facility] Influenza Virus Vaccine (3+ yrs) 2013-11-26 00:00:00 Completed [facility] Influenza Virus Vaccine (3+ yrs) 2013-11-26 00:00:00 Completed [facility] Influenza Virus Vaccine (3+ yrs) 2013-11-26 00:00:00 Completed [facility] Influenza Virus Vaccine (3+ yrs) 2013-11-26 00:00:00 Completed [facility] Influenza Virus Vaccine (3+ yrs) 2013-11-26 00:00:00 Completed [facility] Influenza Virus Vaccine (3+ yrs) 2013-11-26 00:00:00 Completed [facility] Influenza Virus Vaccine (3+ yrs) 2013-11-26 00:00:00 Completed [facility] Influenza Virus Vaccine (3+ yrs) 2013-11-26 00:00:00 Completed [facility] Influenza Virus Vaccine (3+ yrs) 2013-11-26 00:00:00 Completed [facility] Influenza Virus Vaccine (3+ yrs) 2013-11-26 00:00:00 Completed [facility] Influenza Virus Vaccine (3+ yrs) 2013-11-26 00:00:00 Completed [facility] Influenza Virus Vaccine (3+ yrs) 2013-11-26 00:00:00 Completed [facility] Influenza Virus Vaccine (3+ yrs) 2013-11-26 00:00:00 Completed [facility] Influenza Virus Vaccine (3+ yrs) 2013-11-26 00:00:00 Completed [facility] Influenza Virus Vaccine (3+ yrs) 2013-11-26 00:00:00 Completed [facility] Influenza Virus Vaccine (3+ yrs) 2013-11-26 00:00:00 Completed [facility] Influenza Virus Vaccine (3+ yrs) 2013-11-26 00:00:00 Completed [facility] Influenza Virus Vaccine (3+ yrs) 2013-11-26 00:00:00 Completed [facility] Influenza Virus Vaccine (3+ yrs) 2013-11-26 00:00:00 Completed [facility] Influenza Virus Vaccine (3+ yrs) 2013-11-26 00:00:00 Completed [facility] Meningococcal Polysaccharide (groups A, C, Y and W-135) conjugate vaccine (MCV4P) 2011-11-23 00:00:00 Completed [facility] Meningococcal Polysaccharide (groups A, C, Y and W-135) conjugate vaccine (MCV4P) 2011-11-23 00:00:00 Completed [facility] Meningococcal Polysaccharide (groups A, C, Y and W-135) conjugate vaccine (MCV4P) 2011-11-23 00:00:00 Completed [facility] Meningococcal Polysaccharide (groups A, C, Y and W-135) conjugate vaccine (MCV4P) 2011-11-23 00:00:00 Completed [facility] Meningococcal Polysaccharide (groups A, C, Y and W-135) conjugate vaccine (MCV4P) 2011-11-23 00:00:00 Completed [facility] Meningococcal Polysaccharide (groups A, C, Y and W-135) conjugate vaccine (MCV4P) 2011-11-23 00:00:00 Completed [facility] TDAP 2002-11-13 00:00:00 Completed [facility] TDAP 2002-11-13 00:00:00 Completed [facility] TDAP 2002-11-13 00:00:00 Completed [facility] TDAP 2002-11-13 00:00:00 Completed [facility] TDAP 2002-11-13 00:00:00 Completed [facility] TDAP 2002-11-13 00:00:00 Completed [facility] Influenza Virus Vaccine (3+ yrs) Unknown Completed [facility] TDAP Unknown Completed [facility] Varicella (varivax)(chicken pox) Unknown Completed [facility] MMR Unknown Completed [facility] Varicella (varivax)(chicken pox) Unknown Completed [facility] Meningococcal Polysaccharide (groups A, C, Y and W-135) conjugate vaccine (MCV4P) Unknown Completed [facility] TDAP Unknown Completed [facility] Influenza Virus Vaccine (3+ yrs) Unknown Completed [facility] TDAP Unknown Completed [facility] Varicella (varivax)(chicken pox) Unknown Completed [facility] MMR Unknown Completed [facility] Varicella (varivax)(chicken pox) Unknown Completed [facility] Meningococcal Polysaccharide (groups A, C, Y and W-135) conjugate vaccine (MCV4P) Unknown Completed [facility] TDAP Unknown Completed [facility] Vital Signs Vital Name Observation Time Observation Value Comments S ource Systolic blood pressure 2023-07-15 21:20:00 159 mm[Hg] [facility] Diastolic blood pressure 2023-07-15 21:20:00 98 mm[Hg] [facility] Heart rate 2023-07-15 21:19:00 102 /min [facility] Body temperature 2023-07-15 21:19:00 37.28 Sherlyn [facility] Respiratory rate 2023-07-15 21:19:00 16 /min [facility] Body height 2023-07-15 21:19:00 170.2 cm [facility] Body weight 2023-07-15 21:19:00 150.912 kg [facility] BMI 2023-07-15 21:19:00 52.11 kg/m2 [facility] Oxygen saturation in Arterial blood by Pulse oximetry 2023-07-15 21:19:00 98 /min [facility] Systolic blood pressure 2022-07-15 18:01:00 167 mm[Hg] [facility] Diastolic blood pressure 2022-07-15 18:01:00 100 mm[Hg] [facility] Heart rate 2022-07-15 18:01:00 87 /min [facility] Body temperature 2022-07-15 18:01:00 37.17 Sherlyn [facility] Respiratory rate 2022-07-15 18:01:00 18 /min [facility] Body height 2022-07-15 18:01:00 170.2 cm [facility] Body weight 2022-07-15 18:01:00 157.398 kg [facility] BMI 2022-07-15 18:01:00 54.35 kg/m2 [facility] Oxygen saturation in Arterial blood by Pulse oximetry 2022-07-15 18:01:00 98 /min [facility] Systolic blood pressure 2021-11-15 18:58:00 172 mm[Hg] [facility] Diastolic blood pressure 2021-11-15 18:58:00 80 mm[Hg] [facility] Heart rate 2021-11-15 18:57:00 91 /min [facility] Body temperature 2021-11-15 18:57:00 36.33 Sherlyn [facility] Respiratory rate 2021-11-15 18:57:00 16 /min [facility] Body height 2021-11-15 18:57:00 171.5 cm [facility] Body weight 2021-11-15 18:57:00 145.151 kg [facility] BMI 2021-11-15 18:57:00 49.38 kg/m2 [facility] Oxygen saturation in Arterial blood by Pulse oximetry 2021-11-15 18:57:00 99 /min [facility] Systolic blood pressure 2021-07-15 16:13:00 144 mm[Hg] [facility] Diastolic blood pressure 2021-07-15 16:13:00 87 mm[Hg] [facility] Heart rate 2021-07-15 16:12:00 93 /min [facility] Respiratory rate 2021-07-15 16:12:00 20 /min [facility] Body height 2021-07-15 16:12:00 171.5 cm [facility] Body weight 2021-07-15 16:12:00 153.968 kg [facility] BMI 2021-07-15 16:12:00 52.38 kg/m2 [facility] Oxygen saturation in Arterial blood by Pulse oximetry 2021-07-15 16:12:00 99 /min [facility] Systolic blood pressure 2021-03-19 00:31:00 148 mm[Hg] [facility] Diastolic blood pressure 2021-03-19 00:31:00 87 mm[Hg] [facility] Heart rate 2021-03-19 00:29:00 84 /min [facility] Body temperature 2021-03-19 00:29:00 37.33 Sherlyn [facility] Respiratory rate 2021-03-19 00:29:00 18 /min [facility] Body height 2021-03-19 00:29:00 170.2 cm [facility] Body weight 2021-03-19 00:29:00 136.079 kg [facility] BMI 2021-03-19 00:29:00 46.99 kg/m2 [facility] Oxygen saturation in Arterial blood by Pulse oximetry 2021-03-19 00:29:00 98 /min [facility] Systolic blood pressure 2020-12-18 00:06:00 174 mm[Hg] pt kept moving due to son [facility] Diastolic blood pressure 2020-12-18 00:06:00 83 mm[Hg] pt kept moving due to son [facility] Heart rate 2020-12-18 00:06:00 86 /min [facility] Body temperature 2020-12-18 00:06:00 37.17 Sherlyn [facility] Respiratory rate 2020-12-18 00:06:00 18 /min [facility] Body height 2020-12-18 00:06:00 170.2 cm [facility] Body weight 2020-12-18 00:06:00 147.782 kg [facility] BMI 2020-12-18 00:06:00 51.03 kg/m2 [facility] Oxygen saturation in Arterial blood by Pulse oximetry 2020-12-18 00:06:00 96 /min [facility] Systolic blood pressure 2020-07-14 20:16:00 139 mm[Hg] [facility] Diastolic blood pressure 2020-07-14 20:16:00 85 mm[Hg] [facility] Heart rate 2020-07-14 20:16:00 84 /min [facility] Body temperature 2020-07-14 20:16:00 37.33 Sherlyn [facility] Respiratory rate 2020-07-14 20:16:00 16 /min [facility] Body height 2020-07-14 20:16:00 170.2 cm [facility] Body weight 2020-07-14 20:16:00 147.589 kg [facility] BMI 2020-07-14 20:16:00 50.96 kg/m2 [facility] Systolic blood pressure 2020-05-18 14:28:00 130 mm[Hg] [facility] Diastolic blood pressure 2020-05-18 14:28:00 70 mm[Hg] [facility] Heart rate 2020-05-18 14:22:00 91 /min [facility] Body temperature 2020-05-18 14:22:00 36.78 Sherlyn [facility] Respiratory rate 2020-05-18 14:22:00 16 /min [facility] Body height 2020-05-18 14:22:00 170.2 cm [facility] Body weight 2020-05-18 14:22:00 148.411 kg [facility] BMI 2020-05-18 14:22:00 51.24 kg/m2 [facility] Systolic blood pressure 2020-02-12 18:58:00 135 mm[Hg] per pt report taken this AM [facility] Diastolic blood pressure 2020-02-12 18:58:00 75 mm[Hg] per pt report taken this AM [facility] Diastolic blood pressure 2020-01-23 01:21:00 77 mm[Hg] [facility] Systolic blood pressure 2020-01-23 01:21:00 182 mm[Hg] [facility] Heart rate 2020-01-23 01:20:00 65 /min [facility] Body temperature 2020-01-23 01:20:00 37.17 Sherlyn [facility] Respiratory rate 2020-01-23 01:20:00 18 /min [facility] Body height 2020-01-23 01:20:00 170.2 cm [facility] Body weight 2020-01-23 01:20:00 140.706 kg [facility] BMI 2020-01-23 01:20:00 48.58 kg/m2 [facility] Oxygen saturation in Arterial blood by Pulse oximetry 2020-01-23 01:20:00 98 /min [facility] Procedures Procedure Date / Time Performed Performing Clinicia n Source POCT SARS-COV-2 ANTIGEN (BINAX NOW) 2023-07-15 21:34:00 Leno Lund [facility] ASSIGNMENT OF BENEFITS 2023-07-15 20:57:57 Docto r Unassigned, [place] [facility] POCT MOLECULAR STREP 2022-07-15 17:59:00 Crystal Palacio [facility] ASSIGNMENT OF BENEFITS 2022-07-15 17:52:52 Docto r Unassigned, [place] [facility] POCT GRP A STREP (MOLECULAR) 2020-12-18 00:24:00 Jose Raul Rodriguez [facility] POCT GRP A STREP (MOLECULAR) 2020-01-23 01:52:00 Erica Sampson [facility] POCT FLU A AND B (MOLECULAR) 2020-01-23 01:40:00 Erica Sampson [facility] Encounters Start Date/Time End Date/Time Encounter Type Admission Type Attending [facility] Care Facility Care Department Encounter ID Source 2023-07-15 16:00:00 2023-07-15 16:20:00 Urgent Care Leno Lund Unknown, [facility]ending [facility] 1.2.840.114 350.1.13.10 4.2.7.2.686 [id number] [facility] 2023-07-15 16:00:00 2023-07-15 16:00:00 Outpatient R LENO LUND [facility] [id number] [facility] 2023-07-15 00:00:00 2023-07-15 00:00:00 Orders Only Doctor Unassigned, [place] [facility] 1.114 350.1.13.10 4.2.7.2.686 [id number] [facility] 2022-07-15 17:20:00 2022-07-15 17:40:00 Urgent Care Provider, Ang Db [facility] 1.114 350.1.13.10 4.2.7.2.686 [id number] [facility] 2022-07-15 17:20:00 2022-07-15 13:20:42 Outpatient R PIA [facility] [id number] [facility] 2022-07-15 00:00:00 2022-07-15 00:00:00 Orders Only Doctor Unassigned, [place] [facility] 1.114 350.1.13.10 4.2.7.2.686 [id number] [facility] 2021-11-15 12:40:00 2021-11-15 13:28:47 Outpatient R AUGUSTIN GLORIA [facility] [id number] [facility] 2021-11-15 12:40:00 2021-11-15 13:28:47 Urgent Care Augustin [facility] 1.84114 350.1.13.10 4.2.7.2.686 [id number] [facility] 2021-11-08 15:30:00 2021-11-08 15:52:28 Outpatient R AUGUSTIN [facility] [id number] [facility] 2021-11-08 15:30:00 2021-11-08 15:45:00 Laboratory Only Only, Ang Db Test [facility] 1.84114 350.1.13.10 4.2.7.2.686 [id number] [facility] 2021-09-14 15:30:00 2021-09-14 15:30:00 Outpatient R STEVE HOWELL [facility] [id number] Breonnamarissa james [facility] 2021-07-16 00:00:00 2021-07-16 00:00:00 Letter (Out) Elke Anderson [facility] 1..840.114 350.1.13.10 4.2.7.2.686 [id number] [facility] 2021-07-15 10:50:51 2021-07-15 11:10:51 Urgent Care [facility]?Amirah [facility] 1..840.114 350.1.13.10 4.2.7.2.686 [id number] [facility] 2021-07-15 11:00:00 2021-07-15 11:00:00 Outpatient R AURORA NATA [facility] [id number] [facility] 2021-03-18 19:00:00 2021-03-18 19:00:00 Outpatient REGGIE MITCHELL [facility] [id number] [facility] 2021-03-18 18:19:37 2021-03-18 18:39:37 Urgent Care Meliton Cardozo [facility] 1..840.114 350.1.13.10 4.2.7.2.686 [id number] [facility] 2021-02-24 14:30:00 2021-02-24 14:30:00 Outpatient MARCELA ROJO [facility] [id number] [facility] 2021-02-19 11:48:00 2021-02-19 11:48:00 Outpatient GC_SWHAOMC_ Cooper_J [facility] [id number] [facility] 2021-02-03 14:30:00 2021-02-03 14:30:00 Outpatient BRAD SALEH [facility] [id number] [facility] 2021-02-02 00:00:00 2021-02-02 00:00:00 Patient Outreach Brad Saleh [facility] 1..840.114 350.1.13.10 4.2.7.2.686 [id number] [facility] 2020-12-17 18:01:59 2020-12-17 18:21:59 Urgent Care Jose Raul Rodriguez Kimberly [facility] 1..840.114 350.1.13.10 4.2.7.2.686 [id number] [facility] 2020-12-17 18:20:00 2020-12-17 18:20:00 Outpatient R REGGIE ZHU [facility] [id number] [facility] 2020-12-01 00:00:00 2020-12-01 00:00:00 Telephone Eugenia White [facility] BENEFITS TECHNICIAN [facility] 1..840.114 350.1.13.10 4.2.7.2.686 [id number] [facility] 2020-08-10 13:00:00 2020-08-10 13:00:00 Outpatient R [facility] [id number] [facility] 2020-07-14 15:02:07 2020-07-14 15:22:33 Office Visit Eugenia White [facility] BENEFITS TECHNICIAN [facility] 1..840.114 350.1.13.10 4.2.7.2.686 [id number] [facility] 2020-07-14 15:15:00 2020-07-14 15:15:00 Outpatient R EUGENIA WHITE [facility] [id number] [facility] 2020-07-09 00:00:00 2020-07-09 00:00:00 Patient Secure Msg Doctor Unassigned, [place] [facility] BENEFITS TECHNICIAN [facility] 1.114 350.1.13.10 4.2.7.2.686 [id number] [facility] 2020-05-24 00:00:00 2020-05-24 00:00:00 Patient Secure Msg Doctor Unassigned, [place] [facility] 1..114 350.1.13.10 4.2.7.2.686 [id number] [facility] 2020-05-22 11:48:33 2020-05-22 12:08:33 Laboratory Only Lab, Adc Fam Pob I MaryloutayaVicente pradhanjosephfly [facility] Professio nal Office Building One .114 350.1.13.10 4.2.7.2.686 [id number] [facility] 2020-05-22 10:40:00 2020-05-22 10:40:00 Outpatient R TYESHA DAILEY [facility] [id number] [facility] 2020-05-18 13:00:00 2020-05-18 13:00:00 Outpatient R [facility] [id number] [facility] 2020-05-18 09:12:49 2020-05-18 09:27:49 Nurse Visit Visit, Rayne Ash [facility] 1.114 350.1.13.10 4.2.7.2.686 [id number] [facility] 2020-02-12 13:19:42 2020-02-12 13:34:15 Nurse Visit Visit, Rayne Ash [facility] BENEFITS TECHNICIAN [facility] 1.114 350.1.13.10 4.2.7.2.686 [id number] [facility] 2020-02-12 13:00:00 2020-02-12 13:34:15 Outpatient R RAYNE GUADARRAMA [facility] [id number] [facility] 2020-02-12 13:00:00 2020-02-12 13:00:00 Outpatient R RAYNE GUADARRAMA [facility] [id number] [facility] 2020-02-10 15:30:00 2020-02-10 15:30:00 Outpatient R [facility] [id number] [facility] 2020-02-03 00:00:00 2020-02-03 00:00:00 Patient Secure Msg Doctor Unassigned, [place] [facility] BENEFITS TECHNICIAN [facility] [id number] [facility] 2020-01-22 19:52:35 2020-01-22 21:51:31 Urgent Care Erica Sampson A Unknown, Attending [facility] [id number] [facility] 2020-01-22 20:00:00 2020-01-22 20:00:00 Outpatient R UNKNOWN, ATTENDING [facility] [id number] [facility] Results Test Description Test Time Test Comments Results Result Co mments Source [facility] TH[facility]PREP, [id number] 10:46:59 * Test Item Value Reference Range Interpretation Comme nts SOURCE: (test code = 8001) Cervical SLIDES: (test code = 8011) 1 LMP: (test code = 8021) 07/16/2022 SPECIMEN ADEQUACY: (test code = 43009) (NOTE) Satisfactory for evaluation. Endocervical cells/transformation zone component present. INTERPRETATION: (test code = 04445) NILM/NO EPITH. ABNORMALITY;SEE BELOW --- - NEGATIVE FOR INTRAEPITHELIAL LESION OR MALIGNANCY (NILM) ---- OTHER COMMENTS: (test code = 8081) (NOTE) Shift in sheila suggestive of bacterial vaginosis. LABORER POULTRY HATCHERY : (test code = 8101) [facility](ASCP ) IAC QC TECHNOLOGIST: (test code = 8111) [facility]inson(ASCP) LOCATION: (test code = 95628) (NOTE) Specimens proces sed and interpreted at [facility], [address] [place] [address], , CLIA: [id number] CPT: (test code = 8140) (NOTE) 77026 UNLESS OTH ERWISE INDICATED, COMPUTER AIDED AND LABORER POULTRY HATCHERY SCREENING PERFORMED. The Pap test is a screening test with an inherent, but low probability of error. Your patient should be reminded to consult you immediately if she experiences any suspicious signs or symptoms, regardless of her Pap test result. An alternate report format containing images or consolidated prior Pap history is available as applicable. HPV HIGH RISK WITH GENOTYPE, [id number] 16:15:25* Test Item Value Reference Range Interpretation Comme nts HPV HIGH RISK INTERP (test code = 81747) POSITIVE NEGATIVE A HPV 16 (test code = 67002) NEGATIVE HPV 18 (test code = 55566) NEGATIVE HPV, HR, OTHER GENOTYPES (test code = 99646) POSITIVE A Testing methodol ogy is real-time PCR utilizing hydrolysis probes with the [employer] 4800 system. The test individually detects genotypes 16 and 18, as well as the other 12 high risk types (31,33,35,39,45,51,52,56 ,58,59,66,68). The expected result is negative. A negative result does not rule out the presence of HPV not included in the genotype set, a low level of infection or specimen sampling error. UNLESS OTHERWISE INDICATED, ALL TESTING PERFORMED [facility] [address] [place], [place] [address] CREDIT CARD CLERK: LINDA LENTZ M.D. CLIA NUMBER [id number] [place]. [id number] VAGINAL PATHOGENS DNA [id number] 14:29:02* Test Item Value Reference Range Interpretation Comme [facility] ZAY SPECIES (test code = 32148) NEGATIVE NEGATIVE G. VAGINALIS (test code = 32739) POSITIVE NEGATIVE A T. VAGINALIS (test code = 60599) NEGATIVE NEGATIVE UNLESS OTHERWISE INDICATED, ALL TESTING PERFORMED [facility] [employer], [facility]. [address] [place] [address] CREDIT CARD CLERK: LINDA LENTZ M.D. CLIA NUMBER [id number] [place]. [id number] POCT MOLECULAR [id number] 18:07:43* Test Item Value Reference Range Interpretation Comme [facility] POCT Molecular Strep (test c ode = 32745-1) Negative Negative Lab Interpretation (test cod e = 38309-9) Normal [facility], [id number] 18:08:10* Test Item Value Reference Range Interpretation Comme [facility] SPECIMEN SOURCE (test code = 67065) SKIN HSV TYPE I (test code = 632115) NEGATIVE NEGATIVE HSV TYPE II (test code = 441027) NEGATIVE NEGATIVE NOTE: METHODOLOG Y IS CHANGED TO [employer] APTIMA TARGET-CAPTURE [employer] WORKER-MEDIATED AMPLIFICATION (TMA) WITH SEPARATE TARGETS AND REPORTING FOR HSV TYPE 1 AND TYPE 2. CPT CODE IS ADJUSTED. REFERENCE INTERVAL IS UNCHANGED. SEE [email or web address] UNLESS OTHERWISE INDICATED, ALL TESTING PERFORMED [facility] [address] [place] [address] CREDIT CARD CLERK: LINDA LENTZ M.D. CLIA NUMBER [id number] [place]. [id number] POCT GRP A STREP (MOLECULAR)2020-12-18 00:34:00* Test Item Value Reference Range Interpretation Comme [facility] POCT GP A STREP (test code = 15708-7) Negative Negative - Negative GABRIELLE (test code = GABRIELLE) accurate developme nt and interpretation of all internal controls Lab Interpretation (test code = 44692-6) Normal [facility] GRP A STREP (MOLECULAR)2020-01-23 02:02:00* Test Item Value Reference Range Interpretation Comme nts POCT GP A STREP (test code = 09843-9) negative Negative - Negative Lab Interpretation (test cod e = 80799-6) Normal [facility] FLU A AND B (MOLECULAR)2020-01-23 01:50:00* Test Item Value Reference Range Interpretation Comme nts POCT INFLUENZA A (test code = 3840) negative Negative - Negative POCT INFLUENZA B (test code = 3841) negative Negative - Negative Lab Interpretation (test cod e = 61030-8) [facility]
--- NOTE | 2023-11-25 17:16 | ER ---
Nurse's Notes [facility] Name: Mercedes Cuello Age: 37 yrs Sex: Female : 1985 Arrival Date: 11/25/2023 Time: 15:32 Bed 11 [facility] MD: Diagnosis: Low back pain Presentation: 11/25 15:55 Chief complaint: Patient states: Low back pain for about a week, seen at urgent care, nj1 given steroids and muscle relaxants. Coronavirus screen: Vaccine status: Patient reports receiving the 2nd dose of the covid vaccine. Ebola Screen: Patient denies travel to an Ebola-affected area in the 21 days before illness onset. Initial Sepsis Screen: Does the patient meet any 2 criteria? No. Patient's initial sepsis screen is negative. Does the patient have a suspected source of infection? No. Patient's initial sepsis screen is negative. Risk Assessment: Do you want to hurt yourself or someone else? Patient reports no desire to harm self or others. Onset of symptoms was November 2023. 15:55 Method Of Arrival: Ambulatory [facility] 15:55 Acuity: ALEXYS 3 [facility] Historical: - Allergies: 16:01 ANTIHISTAMINES (swelling); nj1 - PMHx: 16:01 Depression; Herniated disc/ back pain; uterine fibroids; nj1 - PSHx: 16:01 back surgery; Cholecystectomy; Cleft Lip; ; nj1 - Immunization history:: Client reports receiving the 2nd dose of the Covid vaccine. - Social history:: Smoking status: Patient denies any tobacco usage or history of. Screenin:45 [facility] ED Fall Risk Assessment (Adult) Score/Fall Risk Level 0 - 2 = Low Risk hb Oriented to surroundings, Maintained a safe environment, Educated pt \T\ family on fall prevention, incl call for assistance when getting out of bed. Abuse screen: Denies threats or abuse. Denies injuries from another. Nutritional screening: No deficits noted. Tuberculosis screening: No symptoms or risk factors identified. Assessment: 16:45 Reassessment: Patient appears in no apparent distress at this time. Patient and/or hb family updated on plan of care and expected duration. Pain level reassessed. Patient is alert, oriented x 3, equal unlabored respirations, skin warm/dry/pink. 17:40 Reassessment: Patient appears in no apparent distress at this time. Patient and/or hb family updated on plan of care and expected duration. Pain level reassessed. Patient is alert, oriented x 3, equal unlabored respirations, skin warm/dry/pink. Patient states symptoms have improved. Vital Signs: 15:55 BP 186 / 103; Pulse 88; Resp 18; Temp 97.9(TE); Pulse Ox 99% ; Weight 154.22 kg; Height nj1 5 ft. 7 in. ; Pain 10/10; 15:55 Body Mass Index 53.25 (154.22 kg, 170.18 cm) nj1 15:55 Pain Scale: Adult [facility] ED Course: 15:35 Patient arrived in ED. ts1 15:40 [facility]C [facility] kb 15:40 Nikko Russell MD is Attending Physician. kb 16:01 Triage completed. nj1 16:01 Arm band placed on right wrist. nj1 16:45 Patient has correct armband on for positive identification. Provided Education on: hb medications. 16:45 No provider procedures requiring assistance completed. Patient did not have IV access hb during this emergency room visit. Administered Medications: 16:43 Drug: Diazepam PO 5 mg PO once Route: PO; hb 16:44 Drug: Hydrocodone-Acetaminophen PO (7.5 mg-325 mg) 1 tabs PO once Route: PO; hb 16:44 Drug: Ketorolac IM 30 mg IM once Route: IM; Site: left ventrogluteal; hb Medication: 17:40 VIS not applicable for this client. hb Outcome: 17:16 Discharge ordered by MD. kb 17:40 Discharged to home ambulatory, via wheelchair, with family, 17:40 Condition: stable 17:40 Discharge instructions given to patient, Instructed on discharge instructions, follow up and referral plans. medication usage, Demonstrated understanding of instructions, follow-up care, medications, 17:46 Patient left the ED. hb Signatures: Renetta Reyes FNP-C FNP-Ckb Baxter, Heather, RN RN hb Araceli Carrera RN RN nj1 Franny Davis, ASHLEIGH PAS ts1
--- NOTE | 2023-11-25 17:16 | EDPHYS ---
Physician Documentation [facility] Name: Mercedes Cuello Age: 37 yrs Sex: Female : 1985 Arrival Date: 11/25/2023 Time: 15:32 Bed 11 Private MD: AMARA Physician Nikko Russell HPI: 11/25 18:43 This 37 yrs old Black Female presents to ER via Ambulatory with complaints of Back Pain.kb 18:44 Pt is a 37 year old female who presents for low back pain that is chronic, but got kb worse one week ago. States she was seen by and given steroids and antiinflammatories, but still having pain. Denies urinary symptoms, incontinence, fever, numbness, tingling. Historical: - Allergies: 16:01 ANTIHISTAMINES (swelling); nj1 - PMHx: 16:01 Depression; Herniated disc/ back pain; uterine fibroids; nj1 - PSHx: 16:01 back surgery; Cholecystectomy; Cleft Lip; ; nj1 - Immunization history:: Client reports receiving the 2nd dose of the Covid vaccine. - Social history:: Smoking status: Patient denies any tobacco usage or history of. ROS: 18:42 Constitutional: Negative for fever, chills, and weight loss, kb 18:42 Back: Positive for pain at rest, pain with movement, of the low back area, 18:42 All other systems are negative, Exam: 18:42 Constitutional: This is a well developed, well nourished patient who is awake, alert, kb and in no acute distress. Head/Face: Normocephalic, atraumatic. ENT: Moist Mucous membranes Cardiovascular: Regular rate Respiratory: Respirations even and unlabored. No increased work of breathing. Talking in full sentences Abdomen/GI: Soft, non-tender. No distention Skin: Warm, dry with normal turgor. Normal color. MS/ Extremity: Pulses equal, no cyanosis. Neurovascular intact. Full, normal range of motion. Neuro: Awake and alert, GCS 15, oriented to person, place, time, and situation. Moves all extremities. Normal gait. 18:42 Back: pain, is absent, ROM is painful, normal spinal alignment noted, CVA tenderness, is absent, Vital Signs: 15:55 BP 186 / 103; Pulse 88; Resp 18; Temp 97.9(TE); Pulse Ox 99% ; Weight 154.22 kg; Height nj1 5 ft. 7 in. ; Pain 10/10; 15:55 Body Mass Index 53.25 (154.22 kg, 170.18 cm) nj1 15:55 Pain Scale: Adult nj1 MDM: 15:40 Patient medically screened. kb 18:43 Data reviewed: vital signs, nurses notes. kb 18:45 Differential diagnosis: arthritis, strain, fracture, sciatica, contusion, Herniated kb disc. Counseling: I had a detailed discussion with the patient and/or guardian regarding the historical points, exam findings, and any diagnostic results supporting the discharge/admit diagnosis, the need for outpatient follow up, a family practitioner, to return to the emergency department if symptoms worsen or persist or if there are any questions or concerns that arise at home. 18:46 ED course: Pt will follow up with her surgeon on Monday. kb Administered Medications: 16:43 Drug: Diazepam PO 5 mg PO once Route: PO; hb 16:44 Drug: Hydrocodone-Acetaminophen PO (7.5 mg-325 mg) 1 tabs PO once Route: PO; hb 16:44 Drug: Ketorolac IM 30 mg IM once Route: IM; Site: left ventrogluteal; hb Disposition Summary: 11/25/23 17:16 Discharge Ordered Notes: Location: Home kb Condition: Stable kb Diagnosis - Low back pain kb Followup: kb - With: Emergency Department - When: As needed - Reason: Worsening of condition Followup: kb - With: Private Physician - When: 2 - 3 days - Reason: Recheck today's complaints, Continuance of care, Re-evaluation by your physician Discharge Instructions: - Discharge Summary Sheet kb - Musculoskeletal Pain kb Forms: - Medication Reconciliation Form kb - Thank You Letter kb - Antibiotic Education kb - Prescription Opioid Use kb - Patient Portal Instructions kb - Leadership Thank You Letter kb Signatures: Renetta Reyes FNP-C FNP-Estela Abreu, EUSEBIA RN Araceli Carrera RN RN nj1
[2023-11-25 18:47] VITALS: BP 186/103; TEMP 97.9; O2SAT 99
== END ==
LOC: ER 15:32
DX: M54.50 Low back pain, unspecified (principal); Z88.8 Allergy status to other drugs, medicaments and biological substances
CPT/HCPCS: 96372; 99284